=== PATIENT | male | born 1935 | race Caucasian/White ===

== ENCOUNTER → 2016-06-21 | Outpatient (CLI) | payer OTHER ==
[~2016-06-21] MED LIST: ASPI81TA21 PO; CLOP1TAB15 PO; GLIM2TAB2 PO; METF1000 PO; METO50TA7 PO; MULT-225 PO; NITR0.4S UT; PANT40TA PO; RANI150C4 PO; ZCRT/40 PO
[2016-06-21 11:58] LABS: BASO % 1.1 %; COMPLETE YES; EOS % 6.8 %; HEMATOCRIT 37.8 % (42-52); IG% 0.2 %; LYMPH % 30.2 %; LYMPH ABS # 2.72 K/uL (1.2-3.4); MEAN CELL VOLUME 90.4 fL (80-100); MEAN CORPUSCULAR HEMOGLOBIN 30.9 pg (25-34); MEAN CORPUSCULAR HGB CONC 34.1 g/dl (32-36); MEAN PLATELET VOLUME 11.4 fL (7.4-10.4); MONO % 9.3 %; NEUT % 52.4 %; PLATELET COUNT 246 K/uL (130-400); RED BLOOD COUNT 4.18 M/uL (4.7-6.1); WHITE BLOOD COUNT 9.02 K/uL (4.8-10.8)
[2016-06-21 12:27] LABS: ALT/SGPT 20 U/L (12-78); BLOOD UREA NITROGEN 29 mg/dl (7-18); CARBON DIOXIDE 27 mmol/L (21-32); CHLORIDE 106 mmol/L (98-107); CHOLESTEROL 126 mg/dl (0-200); ESTIMATED AVERAGE GLUCOSE 183 mg/dl; GLUCOSE 146 mg/dl (70-99); HA1C FLAG Normal (Normal); POTASSIUM 4.1 mmol/L (3.5-5.1); SODIUM 141 mmol/L (136-145); TRIGLYCERIDES 134 mg/dl (0-150); VERY LOW DENSITY LIPOPROT CALC 27 mg/dl
[2016-06-21 12:30] LABS: ALB/GLOB RATIO 1.1 (0.9-2); ALKALINE PHOSPHATASE 66 U/L (45-117); AST/SGOT 10 U/L (15-37); CHOLESTEROL/HDL RATIO 2.9; HDL CHOLESTEROL 44 mg/dl; LDL CHOLESTEROL CALCULATED 55 mg/dl
== END | disposition home or self-care (01) ==
LOC: C.LABPBG 08:29
PROVIDERS: ATTEND Internal Medicine Cardiovascular Disease
DX: E78.5 Hyperlipidemia, unspecified (principal); E11.9 Type 2 diabetes mellitus without complications

== ENCOUNTER → 2016-10-04 | Outpatient (CLI) | payer OTHER ==
[2016-10-04 12:57] LABS: ESTIMATED AVERAGE GLUCOSE 174 mg/dl; HA1C FLAG Normal (Normal)
== END | disposition home or self-care (01) ==
LOC: C.LABPBG 07:32
PROVIDERS: ATTEND Internal Medicine
DX: E11.9 Type 2 diabetes mellitus without complications (principal)

== ENCOUNTER → 2016-12-11 | Outpatient (CLI) | payer OTHER ==
[2016-12-11 12:19] LABS: CHOLESTEROL/HDL RATIO 3.3
== END | disposition home or self-care (01) ==
LOC: C.LABPBG 08:11
PROVIDERS: ATTEND Internal Medicine Cardiovascular Disease
DX: E78.5 Hyperlipidemia, unspecified (principal)

== ENCOUNTER → 2017-07-01 | Outpatient (CLI) | payer OTHER ==
[~2017-07-01] MED LIST changes: +ASPI-319 PO; -ASPI81TA21 PO; -METO50TA7 PO; +METO50TA8 PO
== END | disposition home or self-care (01) ==
LOC: C.LABPBG 07:46
PROVIDERS: ATTEND Internal Medicine
DX: I25.10 Atherosclerotic heart disease of native coronary artery without angina pectoris (principal)

== ENCOUNTER → 2017-07-26 | Outpatient (CLI) | payer OTHER ==
[2017-07-26 13:37] LABS: BASO % 1.1 %; BASO ABS # 0.08 K/uL (0-0.2); EOS % 7.2 %; EOS ABS # 0.54 K/uL (0-0.5); HEMATOCRIT 35.5 % (42-52); HEMOGLOBIN 12.1 g/dL (14.0-18.0); IG# 0.02 K/uL (0.00-0.02); LYMPH % 29.7 %; LYMPH ABS # 2.24 K/uL (1.2-3.4); MEAN CELL VOLUME 93.4 fL (80-100); MEAN CORPUSCULAR HEMOGLOBIN 31.8 pg (25-34); MEAN CORPUSCULAR HGB CONC 34.1 g/dl (32-36); MEAN PLATELET VOLUME 11.4 fL (7.4-10.4); MONO % 8.5 %; MONO ABS # 0.64 K/uL (0.11-0.59); NEUT % 53.2 %; NEUT ABS # 4.01 K/uL (1.4-6.5); PLATELET COUNT 224 K/uL (130-400); RED CELL DISTRIBUTION WIDTH CV 12.9 % (11.5-14.5); RED CELL DISTRIBUTION WIDTH SD 44.4 fL (36.4-46.3); WHITE BLOOD COUNT 7.53 K/uL (4.8-10.8)
[2017-07-26 14:40] LABS: BLOOD UREA NITROGEN 23 mg/dl (7-18); CALCIUM 8.4 mg/dl (8.5-10.1); CARBON DIOXIDE 25 mmol/L (21-32); GLUCOSE 114 mg/dl (70-99); POTASSIUM 4.1 mmol/L (3.5-5.1); SODIUM 139 mmol/L (136-145)
== END | disposition home or self-care (01) ==
LOC: C.LABPBG 07:59
PROVIDERS: ATTEND Internal Medicine
DX: I12.9 Hypertensive chronic kidney disease with stage 1 through stage 4 chronic kidney disease, or unspecified chronic kidney disease (principal); D63.8 Anemia in other chronic diseases classified elsewhere; I25.10 Atherosclerotic heart disease of native coronary artery without angina pectoris; N18.3 Chronic kidney disease, stage 3 (moderate)

== ENCOUNTER → 2017-07-29 | Outpatient (CLI) | payer OTHER ==
[2017-07-29 13:39] LABS: HEMOGLOBIN A1C 8.1 % (4.5-5.6)
== END | disposition home or self-care (01) ==
LOC: C.LABPBG 10:22
PROVIDERS: ATTEND Internal Medicine
DX: E11.9 Type 2 diabetes mellitus without complications (principal)

== ENCOUNTER 2018-07-29 18:35 | Inpatient (IN) ==
[2018-07-29] MEDS ORDERED: SODIUM CHLORIDE 0.9% 1000ML 1,000 ML IV SCH (19:00)
[2018-07-29 19:09] LABS: Basophils # (auto) 0.07 K/uL (0-0.2); Basophils % (auto) 0.9 %; Eosinophils # (auto) 0.48 K/uL (0-0.5); Eosinophils % (auto) 6.1 %; Hematocrit (blood only) 36.1 % (42-52); Hemoglobin 12.5 g/dL (14.0-18.0); Immature Granulocytes # (auto) 0.02 K/uL (0.00-0.02); Immature Granulocytes % (auto) 0.3 %; Lymphocytes # (auto) 2.14 K/uL (1.2-3.4); Lymphocytes % (auto) 27.2 %; Mean Corpuscular Hgb Conc 34.6 g/dL (32-36); Mean Corpuscular Volume 91.6 fL (80-100); Mean Platelet Volume 10.6 fL (7.4-10.4); Monocytes # (auto) 0.69 K/uL (0.11-0.59); Monocytes % (auto) 8.8 %; Neutrophils # (auto) 4.46 K/uL (1.4-6.5); Neutrophils % (auto) 56.7 %; Platelet Count 248 K/uL (130-400); RDW Coefficient of Variation 12.9 % (11.5-14.5); RDW Standard Deviation 43.1 fL (36.4-46.3); Red Blood Count 3.94 M/uL (4.7-6.1); White Blood Count 7.86 K/uL (4.8-10.8)
--- NOTE | 2018-07-29 19:20 | CT Scan Report ---
CT head/brain wo con CLINICAL HISTORY: 82 years-old Male with Stroke evaluation . Acute strokelike symptoms TECHNIQUE: Multiple axial CT images of the head were obtained without contrast. A dose lowering tech nique was utilized adhering to the principles of ALARA. CT DOSE: 729.78 mGycm COMPARISON: Head CT 09/23/2017 FINDINGS: No acute intracranial hemorrhage, midline shift, intracranial mass, hydrocephalus, territorial ischem ia or abnormal extra-axial collection. Age-related involutional changes with ex vacuo ventriculomegal y. Cerebral vascular calcifications are noted. The calvarium is intact. Prior bilateral cataract repair. The paranasal sinuses, mastoid air cells, a nd middle ear cavities are clear. IMPRESSION: No acute intracranial abnormality. The above report was generated using voice recognition software. It may contain grammatical, syntax o r spelling errors. Electronically signed by: Kartik Hidalgo M.D. 07/29/2018 7:19 PM
[2018-07-29 19:24] LABS: Partial Thromboplastin Time 26.7 Seconds (21.0-31.0); Prothrombin Time 9.9 Seconds (9.0-12.0)
[2018-07-29] MEDS ORDERED: ASPIRIN CHEW 324 MG PO STA (19:26)
[2018-07-29 19:28] LABS: Alanine Aminotransferase 23 U/L (12-78); Albumin Level 3.5 gm/dl (3.4-5.0); Aspartate Aminotransferase 20 U/L (15-37); BUN Creatinine Ratio 17.2 (10-20); Blood Urea Nitrogen 27 mg/dl (7-18); Calcium 8.7 mg/dl (8.5-10.1); Carbon Dioxide 22 mmol/L (21-32); Chloride 105 mmol/L (98-107); Creatinine Clr Calc Pharmacy 38.1 ml/min; Est GFR (African American) 46.2; Est GFR (Non-African American) 39.8; Glucose 192 mg/dl (70-99); Potassium 4.4 mmol/L (3.5-5.1); Sodium 137 mmol/L (136-145)
[2018-07-29 19:33] LABS: Albumin Globulin Ratio 0.9 (0.9-2); Alkaline Phosphatase 71 U/L (45-117); Bilirubin,Total 0.2 mg/dl (0.2-1); Globulin 3.8 gm/dl (2.5-4.0); Total Protein 7.3 gm/dl (6.4-8.2); Troponin I < 0.015 ng/ml (0-0.045)
--- NOTE | 2018-07-29 20:04 | XRay Report ---
XR chest 1V portable CLINICAL HISTORY: Cerebrovascular accident. COMPARISON STUDY: Chest radiograph September 23, 2017. FINDINGS: Chronic right-sided rib deformities are noted. There is no pneumothorax or pleural effusion . There is no consolidation. Mild cardiomegaly is noted. There is no evidence for pulmonary edema. IMPRESSION: No acute cardiopulmonary findings. Electronically signed by: Cristian Ramirez M.D. 07/29/2018 8:03 PM
[2018-07-29] MEDS ORDERED: ACETAMINOPHEN 325 MG TAB PO PRN (22:33)
[2018-07-29] MEDS ORDERED: PHARMACIST DISCHARGE MED REC CONSULT PRN (22:33)
[2018-07-29] MEDS ORDERED: CARBOHYDRATES FOR HYPOGLYCEMIA PO PRN (22:33)
[2018-07-29] MEDS ORDERED: GLUCAGON FOR INJ 1 MG VIAL SQ PRN (22:33)
[2018-07-29] MEDS ORDERED: GLUCOSE 10 TABS/TUBE PO PRN (22:33)
[2018-07-29] MEDS ORDERED: ONDANSETRON INJ 2 MG/ML 2 ML VIAL IV PRN (22:33)
[2018-07-29] MEDS ORDERED: GLUCOSE 40% GEL 15 GM TUBE PO PRN (22:33)
[2018-07-29] MEDS ORDERED: DEXTROSE 50% 50 ML SYRINGE IV PRN (22:33)
[2018-07-29] MEDS: INSULIN GLARGINE SOLOSTAR 100 UNITS/ML 3 ML PEN SC SCH (23:51)
[2018-07-29] MEDS: INSULIN ASPART 100 UNITS/ML 3 ML PEN SC SCH (23:52)
--- NOTE | 2018-07-30 00:24 | Emergency Department Note ---
Entered by Floridalma May acting as a scribe for ED Provider Note CHIEF COMPLAINT: Stroke-like symptoms HISTORY OF PRESENT ILLNESS: The patient is an 82 year old male with a history of coronary artery disease and a cardiac catheterization who presents to the Emergency Room with complaints of worsening stroke-like symptoms starting around 1730 today. The patient reports that he went to sit on the porch after dinner and was speaking to his when his speech became gargled. He states that his speech is now back to normal and his agrees, but he complains of pressure in his head and feeling lightheaded. Per , the patient was stumbling when he walked to the porch. She notes that he has been evaluated for muscle weakness since last November, but today's stumbling was worse than usual. She denies noticing any speech symp toms earlier today. The reports that they were just in [place], so she suspects that the patient may be dehydrated. She adds that the patient is on Plavix and that his PCP is Dr. Kulwinder Jaramillo. Pt denies LOC, fevers, chills, diaphoresis, visual changes, neck pain, chest pain, breathing difficulties, nausea, vomiting, abdominal pain, back pain, melena, hematochezia, urinary symptoms, numbness, lymphadenopathy, rash, or other complaints. REVIEW OF SYSTEMS: See HPI for pertinent positives and negatives. A total of ten systems were reviewed and were otherwise negative. PMHx/PSHx: Coronary artery disease, cardiac catheterization SOCIAL HISTORY: Patient lives at home. He is and retired. He has never been a smoker. PHYSICAL EXAM: GENERAL: Awake, alert, well-appearing, in no distress HEAD: Normocephalic, atraumatic. No foy sign. No raccoon eyes. EYES: Normal conjunctiva. PERRL. EARS: External ears normal. Right TM normal. Left TM normal. NOSE: Atraumatic OROPHARYNX: Lips, tongue, and mucosa unremarkable. No erythema or exudate. NECK: No tracheal deviation or JVD. No posterior midline tenderness. No step offs noted. RESPIRATORY: CTA bilaterally. Breath sounds equal. No wheezes. No rhonchi. Normal respiratory effort. CARDIAC: Normal rate, normal rhythm. No murmurs. No rubs. ABDOMEN: Inspection reveals no abnormalities. Soft, non distended. No tenderness to palpation. No hernias. BACK: No midline step offs or tenderness to palpation. Unremarkable. PELVIS: Stable to rock. SKIN: Normal. LYMPH: No adenopathy. MUSCULOSKELETAL: Upper and lower extremities are atraumatic. NEURO: GCS 15. Normal sensorium. Normal heel to purvis. Normal alternating movements. EMERGENCY DEPARTMENT COURSE: 1848: Past medical records reviewed. The patient was evaluated in room A10, and a complete history and physical examination were performed. 1857: I reviewed the patient's case with Sirisha Jamison. 1916: I checked on the patient and updated him on his results. He is stable and undergoing telestroke evaluation. 1918: I reviewed the patient's case with Dr. Granda - Radiology. Dr. Granda reported that the patient's head CT is negative. 1924: I reviewed the patient's case again with Sirisha Jamison. recommended no TPA. She advised the patient be admitted for a stroke workup and be administered aspirin. 1927: I reviewed the patient's case with . will evaluate the patient for further management. 1930: On reevaluation, the patient is resting. I discussed his results and plan for admission with him. He verbalized agreement of the treatment plan. MEDICAL DECISION MAKING: Prior records/ancillary studies reviewed and summarized above. Nursing notes reviewed and agree them. Additional history obtained from the patient's . The patient's history was concerning for expressive aphasia Differential diagnosis: Etiologies such as CVA, TIA metabolic, infection, hypo/hyperglycemia, electrolyte abnormalities, cardiac sources, intracerebral event, toxicologic, neurologic, as well as others were entertained. Physical examination: As above. ER treatment provided: IV Lock Normal saline hydration Oral aspirin On reassessment the patient felt better. Diagnostics interpretation by me: ECG: No dysrhythmia or ischemia The labs revealed an unremarkable CBC except for mild anemia. Mild hyperglycemia on chemistry panel. Imaging studies: CT of the head and chest x-ray were negative for any acute disease. Consultation: A consultation was placed with [facility]. The patient was a stroke alert. He had a very low NIH score. His expressive aphasia had resolved. He had some slight facial droop. The patient continued to improve. After he was evaluated by Dr. Rodriguez of [facility] tele-stroke it was recommended that the patient be admitted to the hospital for a full stroke work-up A consultation was placed with the hospitalist. The case was discussed and diagnostics were reviewed. The patient was evaluated in the ER for further treatment. IMPRESSION: Stroke-like symptoms, expressive aphasia PLAN: Admitted as inpatient The scribe's documentation has been prepared under my direction and personally reviewed by me in its entirety. I confirm that the note above accurately reflects all work, treatment, procedures, and medical decision making performed by me. Impression & Plan Stroke-like symptoms, Expressive aphasia Past Med/Surg History Medical History Coronary artery disease Surgical History S/P cardiac catheterization Social History Preferred Language: Faroese Communication Ability: Effective Portfolio Architect Required: No Beliefs That Will Affect Care: None marital status: Current Living Situation: Spouse current occupational status: retired Other Information That Helps Us Care for You: No Feels Safe at Home: Yes Safety Concerns: Feels Safe At This Time Smoking Status: Former smoker Tobacco Type: cigarettes Smoking End Date: 1992 Second Hand Exposure: Yes Tobacco Cessation Education Requested by Patient: No Hx Alcohol Use: No Hx Substance Use: No Results & Data Vital Signs Vital Signs - 24 hr 07/29/18 18:42 07/29/18 19:10 07/29/18 19:16 Temperature 36.7 C Temperature Source Oral Sepsis Recent Fever Within 48 Hours No Sepsis Action Taken by Nursing No Action Required Pulse Rate 64 74 73 Pulse Rate [Left Apical] Pulse Rate from SpO2 Sensor 74 73 Pulse Rhythm [Left Apical] Pulse Strength [Left Apical] Respiratory Rate 20 22 23 Respiratory Effort / Characteristics Non-Labored Spontaneous Respiratory Depth Normal Respiratory Pattern Regular Blood Pressure 150/71 H 175/97 H Blood Pressure [Left Arm] Blood Pressure Mean 97 123 Blood Pressure Mean [Left Arm] Blood Pressure Position Sitting Blood Pressure Position [Left Arm] Pulse Oximetry 97 98 98 Oxygen Delivery Method Room Air 07/29/18 19:20 07/29/18 19:30 07/29/18 19:31 Temperature Temperature Source Sepsis Recent Fever Within 48 Hours Sepsis Action Taken by Nursing Pulse Rate 72 70 70 Pulse Rate [Left Apical] Pulse Rate from SpO2 Sensor 70 70 Pulse Rhythm [Left Apical] Pulse Strength [Left Apical] Respiratory Rate 23 21 18 Respiratory Effort / Characteristics Respiratory Depth Respiratory Pattern Blood Pressure 159/70 H Blood Pressure [Left Arm] Blood Pressure Mean 99 Blood Pressure Mean [Left Arm] Blood Pressure Position Blood Pressure Position [Left Arm] Pulse Oximetry 98 98 Oxygen Delivery Method 07/29/18 19:40 07/29/18 19:50 07/29/18 20:00 Temperature Temperature Source Sepsis Recent Fever Within 48 Hours Sepsis Action Taken by Nursing Pulse Rate 72 65 67 Pulse Rate [Left Apical] Pulse Rate from SpO2 Sensor 71 66 67 Pulse Rhythm [Left Apical] Pulse Strength [Left Apical] Respiratory Rate 18 21 16 Respiratory Effort / Characteristics Respiratory Depth Respiratory Pattern Blood Pressure Blood Pressure [Left Arm] Blood Pressure Mean Blood Pressure Mean [Left Arm] Blood Pressure Position Blood Pressure Position [Left Arm] Pulse Oximetry 97 96 97 Oxygen Delivery Method 07/29/18 20:01 07/29/18 20:10 07/29/18 20:20 Temperature Temperature Source Sepsis Recent Fever Within 48 Hours Sepsis Action Taken by Nursing Pulse Rate 66 66 67 Pulse Rate [Left Apical] Pulse Rate from SpO2 Sensor 66 66 67 Pulse Rhythm [Left Apical] Pulse Strength [Left Apical] Respiratory Rate 16 18 15 Respiratory Effort / Characteristics Respiratory Depth Respiratory Pattern Blood Pressure 148/75 H Blood Pressure [Left Arm] Blood Pressure Mean 99 Blood Pressure Mean [Left Arm] Blood Pressure Position Blood Pressure Position [Left Arm] Pulse Oximetry 98 99 97 Oxygen Delivery Method 07/29/18 20:30 07/29/18 20:31 07/29/18 20:40 Temperature Temperature Source Sepsis Recent Fever Within 48 Hours Sepsis Action Taken by Nursing Pulse Rate 65 66 66 Pulse Rate [Left Apical] Pulse Rate from SpO2 Sensor 66 66 67 Pulse Rhythm [Left Apical] Pulse Strength [Left Apical] Respiratory Rate 19 15 11 L Respiratory Effort / Characteristics Respiratory Depth Respiratory Pattern Blood Pressure 147/69 H Blood Pressure [Left Arm] Blood Pressure Mean 95 Blood Pressure Mean [Left Arm] Blood Pressure Position Blood Pressure Position [Left Arm] Pulse Oximetry 97 98 98 Oxygen Delivery Method 07/29/18 20:50 07/29/18 21:13 07/29/18 21:20 Temperature Temperature Source Sepsis Recent Fever Within 48 Hours Sepsis Action Taken by Nursing Pulse Rate 67 68 67 Pulse Rate [Left Apical] Pulse Rate from SpO2 Sensor 66 69 67 Pulse Rhythm [Left Apical] Pulse Strength [Left Apical] Respiratory Rate 15 15 21 Respiratory Effort / Characteristics Respiratory Depth Respiratory Pattern Blood Pressure Blood Pressure [Left Arm] Blood Pressure Mean Blood Pressure Mean [Left Arm] Blood Pressure Position Blood Pressure Position [Left Arm] Pulse Oximetry 99 97 98 Oxygen Delivery Method 07/29/18 21:30 07/29/18 21:31 07/29/18 21:40 Temperature Temperature Source Sepsis Recent Fever Within 48 Hours Sepsis Action Taken by Nursing Pulse Rate 65 66 69 Pulse Rate [Left Apical] Pulse Rate from SpO2 Sensor 66 67 Pulse Rhythm [Left Apical] Pulse Strength [Left Apical] Respiratory Rate 19 17 13 Respiratory Effort / Characteristics Respiratory Depth Respiratory Pattern Blood Pressure 174/81 H Blood Pressure [Left Arm] Blood Pressure Mean 112 Blood Pressure Mean [Left Arm] Blood Pressure Position Blood Pressure Position [Left Arm] Pulse Oximetry 98 97 Oxygen Delivery Method 07/29/18 21:50 07/29/18 22:00 07/29/18 22:01 Temperature Temperature Source Sepsis Recent Fever Within 48 Hours Sepsis Action Taken by Nursing Pulse Rate 65 63 63 Pulse Rate [Left Apical] Pulse Rate from SpO2 Sensor Pulse Rhythm [Left Apical] Pulse Strength [Left Apical] Respiratory Rate 15 16 16 Respiratory Effort / Characteristics Respiratory Depth Respiratory Pattern Blood Pressure 147/72 H Blood Pressure [Left Arm] Blood Pressure Mean 97 Blood Pressure Mean [Left Arm] Blood Pressure Position Blood Pressure Position [Left Arm] Pulse Oximetry Oxygen Delivery Method 07/29/18 22:10 07/29/18 22:20 07/29/18 22:42 Temperature 36.4 C L Temperature Source Oral Sepsis Recent Fever Within 48 Hours Sepsis Action Taken by Nursing Pulse Rate 63 62 Pulse Rate [Left Apical] 72 Pulse Rate from SpO2 Sensor Pulse Rhythm [Left Apical] Regular Pulse Strength [Left Apical] Normal Respiratory Rate 15 16 18 Respiratory Effort / Characteristics Non-Labored Spontaneous Respiratory Depth Normal Respiratory Pattern Regular Blood Pressure Blood Pressure [Left Arm] 165/73 H Blood Pressure Mean Blood Pressure Mean [Left Arm] 103 Blood Pressure Position Blood Pressure Position [Left Arm] Lying Pulse Oximetry 95 98 Oxygen Delivery Method Room Air Home Medications Current Medication List: was personally reviewed by me Laboratory Data Attestation: I reviewed the patient's lab results. Result diagrams: 07/29/18 18:58 07/29/18 18:58 Lab Results 07/29/18 07/29/18 07/29/18 Range/Units 18:50 18:58 18:58 WBC 7.86 (4.8-10.8) K/uL RBC 3.94 L (4.7-6.1) M/uL Hgb 12.5 L (14.0-18.0) g/dL Hct 36.1 L (42-52) % MCV 91.6 (80-100) fL MCH 31.7 (25-34) pg MCHC 34.6 (32-36) g/dL RDW Std Deviation 43.1 (36.4-46.3) fL RDW Coeff of Praveena 12.9 (11.5-14.5) % Plt Count 248 (130-400) K/uL MPV 10.6 H (7.4-10.4) fL Immature Gran % (Auto) 0.3 % Neut % (Auto) 56.7 % Lymph % (Auto) 27.2 % [place] % (Auto) 8.8 % Eos % (Auto) 6.1 % Baso % (Auto) 0.9 % Immature Gran # (Auto) 0.02 (0.00-0.02) K/uL Neut # (Auto) 4.46 (1.4-6.5) K/uL Lymph # (Auto) 2.14 (1.2-3.4) K/uL [place] # (Auto) 0.69 H (0.11-0.59) K/uL Eos # (Auto) 0.48 (0-0.5) K/uL Baso # (Auto) 0.07 (0-0.2) K/uL PT 9.9 (9.0-12.0) Seconds INR 1.0 (0.9-1.1) APTT 26.7 (21.0-31.0) Seconds PTT Ratio 1.0 Sodium (136-145) mmol/L Potassium (3.5-5.1) mmol/L Chloride (98-107) mmol/L Carbon Dioxide (21-32) mmol/L Anion Gap (3-11) BUN (7-18) mg/dl Creatinine (0.6-1.4) mg/dl Est Cr Clr Drug Dosing ml/min Est GFR ( Amer) Est GFR (Non-Af Amer) BUN/Creatinine Ratio (10-20) Glucose (70-99) mg/dl POC Glucose 215 H (70-99) Calcium (8.5-10.1) mg/dl Magnesium (1.8-2.4) mg/dl Total Bilirubin (0.2-1) mg/dl AST (15-37) U/L ALT (12-78) U/L Alkaline Phosphatase (45-117) U/L Troponin I (0-0.045) ng/ml Total Protein (6.4-8.2) gm/dl Albumin (3.4-5.0) gm/dl Globulin (2.5-4.0) gm/dl Albumin/Globulin Ratio (0.9-2) Blood Type Antibody Screen 07/29/18 07/29/18 07/29/18 Range/Units 18:58 18:58 23:38 WBC (4.8-10.8) K/uL RBC (4.7-6.1) M/uL Hgb (14.0-18.0) g/dL Hct (42-52) % MCV (80-100) fL MCH (25-34) pg MCHC (32-36) g/dL RDW Std Deviation (36.4-46.3) fL RDW Coeff of Praveena (11.5-14.5) % Plt Count (130-400) K/uL MPV (7.4-10.4) fL Immature Gran % (Auto) % Neut % (Auto) % Lymph % (Auto) % [place] % (Auto) % Eos % (Auto) % Baso % (Auto) % Immature Gran # (Auto) (0.00-0.02) K/uL Neut # (Auto) (1.4-6.5) K/uL Lymph # (Auto) (1.2-3.4) K/uL [place] # (Auto) (0.11-0.59) K/uL Eos # (Auto) (0-0.5) K/uL Baso # (Auto) (0-0.2) K/uL PT (9.0-12.0) Seconds INR (0.9-1.1) APTT (21.0-31.0) Seconds PTT Ratio Sodium 137 (136-145) mmol/L Potassium 4.4 (3.5-5.1) mmol/L Chloride 105 (98-107) mmol/L Carbon Dioxide 22 (21-32) mmol/L Anion Gap 11.0 (3-11) BUN 27 H (7-18) mg/dl Creatinine 1.59 H (0.6-1.4) mg/dl Est Cr Clr Drug Dosing 38.1 ml/min Est GFR ( Amer) 46.2 Est GFR (Non-Af Amer) 39.8 BUN/Creatinine Ratio 17.2 (10-20) Glucose 192 H (70-99) mg/dl POC Glucose 149 H (70-99) Calcium 8.7 (8.5-10.1) mg/dl Magnesium 2.0 (1.8-2.4) mg/dl Total Bilirubin 0.2 (0.2-1) mg/dl AST 20 (15-37) U/L ALT 23 (12-78) U/L Alkaline Phosphatase 71 (45-117) U/L Troponin I < 0.015 (0-0.045) ng/ml Total Protein 7.3 (6.4-8.2) gm/dl Albumin 3.5 (3.4-5.0) gm/dl Globulin 3.8 (2.5-4.0) gm/dl Albumin/Globulin Ratio 0.9 (0.9-2) Blood Type A Positive Antibody Screen NEGATIVE Administered Medications Insulin Aspart (Novolog Flexpen) 0 units SC ACHS ABDIAS Stop: 08/28/18 22:59 Last Admin: 07/29/18 23:52 Dose: Not Given Documented by: [id number] Cosigned by: [id number] Insulin Glargine (Lantus Solostar Pen) 7 units SC BID ABDIAS Stop: 08/28/18 22:59 Last Admin: 07/29/18 23:51 Dose: 7 units Documented by: [id number] Cosigned by: [id number] Discontinued Medications Aspirin (Aspirin) 324 mg PO NOW STA Stop: 07/29/18 19:27 Last Admin: 07/29/18 19:51 Dose: 324 mg Documented by: [id number] Sodium Chloride (Nss 1000ml) 1,000 mls @ 50 mls/hr IV .Q20H ABDIAS Stop: 08/28/18 18:59 Last Admin: 07/29/18 19:17 Dose: 50 mls/hr Documented by: [id number] Imaging Data Radiologist's Impression: Radiology results as stated below per my review and the radiologist's interpretation: CT head/brain wo con CLINICAL HISTORY: 82 years-old Male with Stroke evaluation . Acute strokelike symptoms TECHNIQUE: Multiple axial CT images of the head were obtained without contrast. A dose lowering technique was utilized adhering to the principles of ALARA. CT DOSE: 729.78 mGycm COMPARISON: Head CT 09/23/2017 FINDINGS: No acute intracranial hemorrhage, midline shift, intracranial mass, hydrocephalus, territorial ischemia or abnormal extra-axial collection. Age- related involutional changes with ex vacuo ventriculomegaly. Cerebral vascular calcifications are noted. The calvarium is intact. Prior bilateral cataract repair. The paranasal sinuses, mastoid air cells, and middle ear cavities are clear. IMPRESSION: No acute intracranial abnormality. The above report was generated using voice recognition software. It may contain grammatical, syntax or spelling errors. Electronically signed by: Kartik Hidalgo M.D. 07/29/2018 7:19 PM XR chest 1V portable CLINICAL HISTORY: Cerebrovascular accident. COMPARISON STUDY: Chest radiograph September 23, 2017. FINDINGS: Chronic right-sided rib deformities are noted. There is no pneumothorax or pleural effusion. There is no consolidation. Mild cardiomegaly is noted. There is no evidence for pulmonary edema. IMPRESSION: No acute cardiopulmonary findings. Electronically signed by: Cristian Ramirez M.D. 07/29/2018 8:03 PM ECG Data Attestation: I personally reviewed and interpreted this ECG as follows: Indication: other (stroke-like symptoms) Rate (beats per minute): 72 Rhythm: normal sinus Findings: no PAC, no PVC, no ST depression and no ST elevation Blood Pressure Blood Pressure Findings: Elevated blood pressure Blood Pressure Disposition: further management by hospitalist Discharge Plan Visit Data *Final* Discharge Date/Time: 07/29/18 22:23 Chief Complaint: Stroke/CVA Symptoms Stated Complaint: GARBLED SPEECH, LOSS OF BALANCE ED Provider: Shai An Discharge Problem: Stroke-like symptoms, Expressive aphasia Patient Disposition: Admitted As Inpatient Discharge Instructions Interventions: ED Discharge Assessment Last Done: 07/29/18 22:23 The scribe's documentation has been prepared under my direction and personally reviewed by me in its entirety. I confirm that the note above accurately reflects all work, treatment, procedures, and medical decision making performed by me.
--- NOTE | 2018-07-30 02:15 | History & Physical Report ---
Date of Service July 29, 2018 Assessment & Plan (1) Aphasia: Patient with episode of aphasia lasting approximately 20 minutes earlier today. Has since resolved to baseline functional status. 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 Concern for TIA/CVA resulting in Wernicke's pattern of aphasia -Admit to PCU, neuro checks per protocol -Check MRI brain, MRA head and neck -Check echocardiogram -Check A1C -Lipid panel in March with LDL=74, HDL=38, normal LFTs -Will increase Atorvastatin to 40mg po qHS. Concern that this may worsen patient's myopathy - he will need to be closely monitored in the outpatient setting. Continue CoQ10 -He is presently on ASA and Plavix since 2003 for history of cardiac stents. Will continue this for now, discuss with Neurology about possibly changing to Aggrenox or other anti-platelet agents -Neurology consultation - appreciate assistance with this case -PT/OT Present on Admission?: Yes (2) Hypertension: Blood pressure mildly elevated. -Hold Metoprolol for now to allow for permissive hypertension -Continue to monitor Present on Admission?: Yes (3) Diabetes: Blood [id number]. -Check A1C -Hold oral agents -Lantus 7u BID -ISS -CC diet as tolerated which dysphagia screen passed Present on Admission?: Yes (4) Coronary artery disease: Patient with history of CAD s/p stent to mid LAD in April 2003 and EN to distal LAD in March 2018. On DAPT with ASA and Plavix since 2003. On Atorvastatin 10mg daily. He follows with Dr. Ortiz and was last seen on 17 July 2018. He has been stable from a CAD standpoint. -Continue ASA and Plavix -Increase Atorvastatin as above -Holding Metoprolol as above -Continue to monitor Present on Admission?: Yes (5) Hypothyroid: Chronic -Continue Synthroid (6) GERD (gastroesophageal reflux disease): Chronic. Stable -Continue Protonix -Continue Ranitidine Present on Admission?: Yes (7) CKD (chronic kidney disease): Near baseline -Continue to monitor BUN, Cr and electroltyes -Avoid nephrotoxic agents Present on Admission?: Yes (8) Dyslipidemia: Lipid results as above -Increase Atorvastatin Present on Admission?: Yes (9) BPH (benign prostatic hyperplasia): Patient with BPH. Reports increased urinary frequency and nocturia. No dysuria -Check UA and culture -Bladder scan as needed -Consider initiating Flomax F/E/N - Heplock. MOnitor electrolytes and replete as needed Ppx - SCDs, Protonix and Ranitidine as above Code -Full per discussion with patient Dispo - Admit to PCU for CVA workup History of Present Illness Chief Complaint: aphasia Primary Care Provider: Kulwinder Jaramillo MD Mr. 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 He reports that he ate his supper and went to sit on the porch. He was trying to talk with his and states he was speaking with nonsensical words and syllables. He knew what he wanted to say but was unable to speak appropriate words. Symptoms lasted approximately 20 minutes then resolved. He denies numbness/weakness/visual changes or facial droop. He had a mild headache following the event. Presently feels normal. states he is back to his baseline status. 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 EMG was performed which suggested a mild myopathy. He was treated with steroids with minimal improvement. Follows with Dr. Cartagena - last seen on 10 July. He was referred to the neuromuscular clinic at [place] for possible muscle biopsy. states that he has a shuffling gait and his balance was worse than usual today. They travelled to [place] over the weekend. ER Course: ASA 324mg, NSS Allergies Allergy/AdvReac Type Severity Reaction Status Date / Time Iodinated Contrast- Oral and Allergy Severe ANAPYLAXIS Verified 07/29/18 19:11 IV Dye shellfish derived Allergy Severe Anaphylaxis Verified 07/29/18 19:11 Home Medications Home Medications Medication Instructions Recorded Confirmed Type aspirin [Aspir-81] 81 mg PO DAILY 07/29/18 07/29/18 History atorvastatin 10 mg PO HS 07/29/18 07/29/18 History cetirizine [Zyrtec] 10 mg PO DAILY 07/29/18 07/29/18 History clopidogrel [Plavix] 75 mg PO QAM 07/29/18 07/29/18 History coQ10 (ubiquinol) 200 mg PO DAILY 07/29/18 07/29/18 History epinephrine [EpiPen] 0.3 mg IM DIRECTED PRN 07/29/18 07/29/18 History glimepiride 2 mg PO QAM 07/29/18 07/29/18 History levothyroxine 25 mcg PO QPM 07/29/18 07/29/18 History metformin 1,000 mg PO BIDM 07/29/18 07/29/18 History metoprolol succinate 75 mg PO QAM 07/29/18 07/29/18 History multivitamin 1 tab PO QAM 07/29/18 07/29/18 History nitroglycerin [Nitrostat] 0.4 mg SUBLINGUAL DIRECTED PRN 07/29/18 07/29/18 History pantoprazole 40 mg PO QPM 07/29/18 07/29/18 History ranitidine HCl 150 mg PO HS 07/29/18 07/29/18 History Past Med/Surg History Medical History Coronary artery disease BPH (benign prostatic hyperplasia) CKD (chronic kidney disease) Diabetes Dyslipidemia GERD (gastroesophageal reflux disease) Hypertension Hypothyroid Surgical History S/P cardiac catheterization Family History Other Family history non-contributory Social History Preferred Language: Tanzanian Communication Ability: Effective Motorcycle Maker Required: No Beliefs That Will Affect Care: None marital status: Current Living Situation: Spouse current occupational status: retired Other Information That Helps Us Care for You: No Feels Safe at Home: Yes Safety Concerns: Feels Safe At This Time Smoking Status: Former smoker Tobacco Type: cigarettes Smoking End Date: 1992 Second Hand Exposure: Yes Tobacco Cessation Education Requested by Patient: No Hx Alcohol Use: No Hx Substance Use: No Review of Systems Review of Systems: All systems reviewed & are unremarkable except as noted in HPI & below Patient reports urinary urgency as well as nocturia Patient reports occasional falls Physical Exam Physical Exam: General: patient resting comfortably, NAD, non-toxic in appearance, AA&O x 4 Skin: warm, dry, intact, no rashes or lesions HEENT: NC/AT, PERRL, EOMI, anicteric sclera, conjunctiva without injection, external ear normal to inspection and nontender, nares patent, moist mucus membranes, dentition intact, no oropharyngeal lesions, neck supple, trachea midline, no LAD, no thyromegaly, no JVD Heart: +S1/S2, regular, no m/r/g Lungs: equal air entry bilaterally, no rales/rhonchi/wheezes Abd: +BS, soft, NT/ND, no masses/organomegaly/ascites Ext: warm, 2+ pulses in UE/LE bilaterally, no clubbing/cyanosis or edema Neuro: AA&O x 4, speech intact and appropirate, no facial droop, CN II-XII grossly intact, slightly decreased hearing on L. Sensation to light touch intact bilaterally, weak hand cello teacher bilaterally, L weaker than R (reported as baseline by patient) strength 4/5, no dysmetria Results & Data Vital Signs (Past 12 Hours) Vital Signs Temp Pulse Pulse Resp BP BP Pulse Ox 07/29/18 22:42 36.4 C L 72 18 165/73 H 98 07/29/18 22:20 62 16 95 07/29/18 22:10 63 15 07/29/18 22:01 63 16 147/72 H 07/29/18 22:00 63 16 07/29/18 21:50 65 15 07/29/18 21:40 69 13 07/29/18 21:31 66 17 174/81 H 97 07/29/18 21:30 65 19 98 07/29/18 21:20 67 21 98 07/29/18 21:13 68 15 97 07/29/18 20:50 67 15 99 07/29/18 20:40 66 11 L 98 07/29/18 20:31 66 15 147/69 H 98 07/29/18 20:30 65 19 97 07/29/18 20:20 67 15 97 07/29/18 20:10 66 18 99 07/29/18 20:01 66 16 148/75 H 98 07/29/18 20:00 67 16 97 07/29/18 19:50 65 21 96 07/29/18 19:40 72 18 97 07/29/18 19:31 70 18 159/70 H 98 07/29/18 19:30 70 21 98 07/29/18 19:20 72 23 07/29/18 19:16 73 23 98 07/29/18 19:10 74 22 175/97 H 98 07/29/18 18:42 36.7 C 64 20 150/71 H 97 Laboratory Results Lab Results 07/29/18 07/29/18 07/29/18 Range/Units 18:50 18:58 18:58 WBC 7.86 (4.8-10.8) K/uL RBC 3.94 L (4.7-6.1) M/uL Hgb 12.5 L (14.0-18.0) g/dL Hct 36.1 L (42-52) % MCV 91.6 (80-100) fL MCH 31.7 (25-34) pg MCHC 34.6 (32-36) g/dL RDW Std Deviation 43.1 (36.4-46.3) fL RDW Coeff of Praveena 12.9 (11.5-14.5) % Plt Count 248 (130-400) K/uL MPV 10.6 H (7.4-10.4) fL Immature Gran % (Auto) 0.3 % Neut % (Auto) 56.7 % Lymph % (Auto) 27.2 % [place] % (Auto) 8.8 % Eos % (Auto) 6.1 % Baso % (Auto) 0.9 % Immature Gran # (Auto) 0.02 (0.00-0.02) K/uL Neut # (Auto) 4.46 (1.4-6.5) K/uL Lymph # (Auto) 2.14 (1.2-3.4) K/uL [place] # (Auto) 0.69 H (0.11-0.59) K/uL Eos # (Auto) 0.48 (0-0.5) K/uL Baso # (Auto) 0.07 (0-0.2) K/uL PT 9.9 (9.0-12.0) Seconds INR 1.0 (0.9-1.1) APTT 26.7 (21.0-31.0) Seconds PTT Ratio 1.0 Sodium (136-145) mmol/L Potassium (3.5-5.1) mmol/L Chloride (98-107) mmol/L Carbon Dioxide (21-32) mmol/L Anion Gap (3-11) BUN (7-18) mg/dl Creatinine (0.6-1.4) mg/dl Est Cr Clr Drug Dosing ml/min Est GFR ( Amer) Est GFR (Non-Af Amer) BUN/Creatinine Ratio (10-20) Glucose (70-99) mg/dl POC Glucose 215 H (70-99) Calcium (8.5-10.1) mg/dl Magnesium (1.8-2.4) mg/dl Total Bilirubin (0.2-1) mg/dl AST (15-37) U/L ALT (12-78) U/L Alkaline Phosphatase (45-117) U/L Troponin I (0-0.045) ng/ml Total Protein (6.4-8.2) gm/dl Albumin (3.4-5.0) gm/dl Globulin (2.5-4.0) gm/dl Albumin/Globulin Ratio (0.9-2) Blood Type Antibody Screen 07/29/18 07/29/18 07/29/18 Range/Units 18:58 18:58 23:38 WBC (4.8-10.8) K/uL RBC (4.7-6.1) M/uL Hgb (14.0-18.0) g/dL Hct (42-52) % MCV (80-100) fL MCH (25-34) pg MCHC (32-36) g/dL RDW Std Deviation (36.4-46.3) fL RDW Coeff of Praveena (11.5-14.5) % Plt Count (130-400) K/uL MPV (7.4-10.4) fL Immature Gran % (Auto) % Neut % (Auto) % Lymph % (Auto) % [place] % (Auto) % Eos % (Auto) % Baso % (Auto) % Immature Gran # (Auto) (0.00-0.02) K/uL Neut # (Auto) (1.4-6.5) K/uL Lymph # (Auto) (1.2-3.4) K/uL [place] # (Auto) (0.11-0.59) K/uL Eos # (Auto) (0-0.5) K/uL Baso # (Auto) (0-0.2) K/uL PT (9.0-12.0) Seconds INR (0.9-1.1) APTT (21.0-31.0) Seconds PTT Ratio Sodium 137 (136-145) mmol/L Potassium 4.4 (3.5-5.1) mmol/L Chloride 105 (98-107) mmol/L Carbon Dioxide 22 (21-32) mmol/L Anion Gap 11.0 (3-11) BUN 27 H (7-18) mg/dl Creatinine 1.59 H (0.6-1.4) mg/dl Est Cr Clr Drug Dosing 38.1 ml/min Est GFR ( Amer) 46.2 Est GFR (Non-Af Amer) 39.8 BUN/Creatinine Ratio 17.2 (10-20) Glucose 192 H (70-99) mg/dl POC Glucose 149 H (70-99) Calcium 8.7 (8.5-10.1) mg/dl Magnesium 2.0 (1.8-2.4) mg/dl Total Bilirubin 0.2 (0.2-1) mg/dl AST 20 (15-37) U/L ALT 23 (12-78) U/L Alkaline Phosphatase 71 (45-117) U/L Troponin I < 0.015 (0-0.045) ng/ml Total Protein 7.3 (6.4-8.2) gm/dl Albumin 3.5 (3.4-5.0) gm/dl Globulin 3.8 (2.5-4.0) gm/dl Albumin/Globulin Ratio 0.9 (0.9-2) Blood Type A Positive Antibody Screen NEGATIVE Diagnostic Findings CT head/brain wo con CLINICAL HISTORY: 82 years-old Male with Stroke evaluation . Acute strokelike symptoms TECHNIQUE: Multiple axial CT images of the head were obtained without contrast. A dose lowering technique was utilized adhering to the principles of ALARA. CT DOSE: 729.78 mGycm COMPARISON: Head CT 09/23/2017 FINDINGS: No acute intracranial hemorrhage, midline shift, intracranial mass, hydrocephalus, territorial ischemia or abnormal extra-axial collection. Age- related involutional changes with ex vacuo ventriculomegaly. Cerebral vascular calcifications are noted. The calvarium is intact. Prior bilateral cataract repair. The paranasal sinuses, mastoid air cells, and middle ear cavities are clear. IMPRESSION: No acute intracranial abnormality. The above report was generated using voice recognition software. It may contain grammatical, syntax or spelling errors. Electronically signed by: Kartik Hidalgo M.D. 07/29/2018 7:19 PM Dictated: 07/29/181909 Transcribed: 07/29/181909 XR chest 1V portable CLINICAL HISTORY: Cerebrovascular accident. COMPARISON STUDY: Chest radiograph September 23, 2017. FINDINGS: Chronic right-sided rib deformities are noted. There is no pneumothorax or pleural effusion. There is no consolidation. Mild cardiomegaly is noted. There is no evidence for pulmonary edema. IMPRESSION: No acute cardiopulmonary findings. Electronically signed by: Cristian Ramirez M.D. 07/29/2018 8:03 PM Dictated: 07/29/182001 Transcribed: 07/29/182001 ECG Additional Comments: NSR at 72bpm, no acute ischemic changes Code Status & VTE Plan Code Status FULL Critical Care Time Critical Care Time: No (1) Hypertension Hypertension type: essential hypertension Qualified Code(s): I10 - Essential (primary) hypertension (2) Diabetes Diabetes mellitus type: type 2 Diabetes mellitus custodial insulin use: without superintendent container terminal use Diabetes mellitus complication status: with neurologic complications Diabetes mellitus complication detail: with polyneuropathy Qualified Code(s): E11.42 - Type 2 diabetes mellitus with diabetic polyneuropathy (3) Coronary artery disease Coronary Disease-Associated Artery/Lesion type: hoh artery [place] vs. transplanted heart: hoh heart Associated angina: without angina Qualified Code(s): I25.10 - Atherosclerotic heart disease of hoh coronary artery without angina pectoris (4) Hypothyroid Hypothyroidism type: unspecified Qualified Code(s): E03.9 - Hypothyroidism, unspecified (5) GERD (gastroesophageal reflux disease) Esophagitis presence: esophagitis presence not specified Qualified Code(s): K21.9 - Gastro-esophageal reflux disease without esophagitis (6) CKD (chronic kidney disease) Chronic kidney disease stage: unspecified stage Qualified Code(s): N18.9 - Chronic kidney disease, unspecified (7) BPH (benign prostatic hyperplasia) Lower urinary tract symptom presence: symptoms present
[2018-07-30] MEDS ORDERED: GADOBUTROL 65ML VIAL IV PRN (03:00)
--- NOTE | 2018-07-30 06:22 | Magnetic Resonance Report ---
MR brain wo/w con CLINICAL HISTORY: CVA like symptoms stroke COMPARISON STUDY: No previous studies for comparison. TECHNIQUE: Utilizing a 1.5 Sandie magnet and dedicated coil, multiplanar, multiecho imaging of the br ain was performed pre and postcontrast administration. IV administration of 8.5 mL of Gadavist contr ast was uneventful. FINDINGS: Diffusion-weighted images are considered negative for an acute ischemic insult. There are f indings of mild age-related atrophy and chronic small vessel change. Postcontrast images are considered negative for an enhancing lesion. The ventricular system is midlin e. The sella and parasellar regions are unremarkable. IMPRESSION: 1. Age-related atrophy and chronic small vessel change. 2. Otherwise negative study. The above report was generated using voice recognition software. It may contain grammatical, syntax or spelling errors. Electronically signed by: Clayton Harris M.D. 07/30/2018 6:21 AM
--- NOTE | 2018-07-30 06:24 | Magnetic Resonance Report ---
MR angio head wo con HISTORY: Mental status change CVA like symptoms TECHNIQUE: 3-D [id number] MRA of the brain was performed without contrast. COMPARISON STUDY: None. FINDINGS: Visualized intracranial internal carotid arteries, distal vertebral arteries, and basilar a rtery are widely patent. There is no significant stenosis, occlusion, or aneurysm seen within the linden ateral ACAs, MCAs, or account support analyst. IMPRESSION: No significant stenosis, occlusion, or aneurysm within the [place] of [place]. The above report was generated using voice recognition software. It may contain grammatical, syntax or spelling errors. Electronically signed by: Clayton Harris M.D. 07/30/2018 6:23 AM
--- NOTE | 2018-07-30 06:33 | Magnetic Resonance Report ---
MR angio neck wo/w con HISTORY: Stroke CVA like symptoms TECHNIQUE: Multiaxial CT angiography of the neck was performed IV contrast: 7.5 cc Gadavist. A ll measurements were calculated based on NASCET criteria. Maximum intensity projection images were a lso obtained. A dose lowering technique was utilized adhering to the principles of ALARA. COMPARISON STUDY: None. FINDINGS: There is evidence for considerable motion artifact 60-70% stenosis right internal carotid a rtery. 60% stenosis left internal carotid artery. The vertebral basilar systems appear unremarkable. Mild poststenotic dilatation of the proximal left internal carotid artery. IMPRESSION: 1. 60-70% narrowing right internal carotid artery at its origin. 2. 60% stenosis left internal carotid artery at its origin. 3. No significant stenotic process of the vertebral basilar system. The above report was generated using voice recognition software. It may contain grammatical, syntax or spelling errors. Electronically signed by: Clayton Harris M.D. 07/30/2018 6:32 AM
[2018-07-30] MEDS: INSULIN GLARGINE SOLOSTAR 100 UNITS/ML 3 ML PEN SC SCH (07:51)
[2018-07-30] MEDS: INSULIN ASPART 100 UNITS/ML 3 ML PEN SC SCH ×2 (07:51→12:24)
[2018-07-30 08:24] LABS: Basophils # (auto) 0.07 K/uL (0-0.2); Basophils % (auto) 0.9 %; Eosinophils # (auto) 0.49 K/uL (0-0.5); Eosinophils % (auto) 6.4 %; Hematocrit (blood only) 33.6 % (42-52); Hemoglobin 11.6 g/dL (14.0-18.0); Immature Granulocytes # (auto) 0.02 K/uL (0.00-0.02); Immature Granulocytes % (auto) 0.3 %; Lymphocytes # (auto) 2.15 K/uL (1.2-3.4); Lymphocytes % (auto) 28.1 %; Mean Corpuscular Hgb Conc 34.5 g/dL (32-36); Mean Corpuscular Volume 90.6 fL (80-100); Mean Platelet Volume 10.7 fL (7.4-10.4); Monocytes # (auto) 0.84 K/uL (0.11-0.59); Neutrophils # (auto) 4.08 K/uL (1.4-6.5); Neutrophils % (auto) 53.3 %; Platelet Count 237 K/uL (130-400); RDW Coefficient of Variation 12.9 % (11.5-14.5); RDW Standard Deviation 42.7 fL (36.4-46.3); Red Blood Count 3.71 M/uL (4.7-6.1); White Blood Count 7.65 K/uL (4.8-10.8)
[2018-07-30] MEDS ORDERED: CLOPIDOGREL BISULFATE 75 MG TAB PO SCH (09:00)
[2018-07-30] MEDS ORDERED: ASPIRIN 81 MG ECTAB PO SCH (09:00)
[2018-07-30] MEDS ORDERED: CETIRIZINE HCL 10 MG TABLET PO SCH (09:00)
[2018-07-30] MEDS ORDERED: NON-FORMULARY MEDICATION (Coq10 (Ubiquinol) 200 MG) PO SCH (09:00)
[2018-07-30 09:01] LABS: BUN Creatinine Ratio 18.2 (10-20); Calcium 8.9 mg/dl (8.5-10.1); Creatinine Clr Calc Pharmacy 48.1 ml/min; Est GFR (African American) 61.2; Est GFR (Non-African American) 52.8; Potassium 4.2 mmol/L (3.5-5.1)
--- NOTE | 2018-07-30 10:32 | Neurology Consultation ---
Date of Consultation July 30, 2018 Assessment & Plan (1) TIA (transient ischemic attack): TIA characterized by transient aphasia and perhaps some associated poorly localizable weakness. This patient's weakness was not really focal and was described as stumbling while attempting to walk and is likely confounded by his underlying chronic unspecified myopathy. Transient aphasia would typically localize to the left cerebral hemisphere. 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 The patient is already taking Plavix and daily low-dose aspirin in light of his history of coronary artery disease. I do not believe that switching his aspirin to Aggrenox, while also taking Plavix, would provide any proven additional stroke risk benefit. I do agree with the increased dosage of atorvastatin. The observed carotid stenoses will need additional outpatient follow-up. An outpatient consultation with vascular surgery could be considered although it is not clear to me if either of the observed stenoses is clinically significant. I have no further immediate recommendations. Please contact me if you have any additional questions. History of Present Illness Reason for Consultation: stroke like symptoms Requesting Physician: Mario Attending Physician: Sheila Macedo MD History of Present Illness The patient is an 82-year-old male with a chief complaint of garbled speech that began acutely at around 5:30 last night while sitting on his porch at home with his . 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 Cartagena and has a pending appointment with a neuromuscular disease specialist at [facility]. His speech disturbance persisted for about 20 minutes and was characterized by nonsensical words. He denies any symptomatic recurrence at this time. Allergies Allergy/AdvReac Type Severity Reaction Status Date / Time Iodinated Contrast- Oral and Allergy Severe ANAPYLAXIS Verified 07/29/18 19:11 IV Dye shellfish derived Allergy Severe Anaphylaxis Verified 07/29/18 19:11 Home Medications Home Medications Medication Instructions Recorded Confirmed Type aspirin [Aspir-81] 81 mg PO DAILY 07/29/18 07/29/18 History atorvastatin 10 mg PO HS 07/29/18 07/29/18 History cetirizine [Zyrtec] 10 mg PO DAILY 07/29/18 07/29/18 History clopidogrel [Plavix] 75 mg PO QAM 07/29/18 07/29/18 History coQ10 (ubiquinol) 200 mg PO DAILY 07/29/18 07/29/18 History epinephrine [EpiPen] 0.3 mg IM DIRECTED PRN 07/29/18 07/29/18 History glimepiride 2 mg PO QAM 07/29/18 07/29/18 History levothyroxine 25 mcg PO QPM 07/29/18 07/29/18 History metformin 1,000 mg PO BIDM 07/29/18 07/29/18 History metoprolol succinate 75 mg PO QAM 07/29/18 07/29/18 History multivitamin 1 tab PO QAM 07/29/18 07/29/18 History nitroglycerin [Nitrostat] 0.4 mg SUBLINGUAL DIRECTED PRN 07/29/18 07/29/18 History pantoprazole 40 mg PO QPM 07/29/18 07/29/18 History ranitidine HCl 150 mg PO HS 07/29/18 07/29/18 History Patient History Medical History Coronary artery disease BPH (benign prostatic hyperplasia) CKD (chronic kidney disease) Diabetes Dyslipidemia GERD (gastroesophageal reflux disease) Hypertension Hypothyroid Surgical History S/P cardiac catheterization Family History Other Family history non-contributory Social History Preferred Language: [place] Communication Ability: Effective Brusher And Shearer Required: No Beliefs That Will Affect Care: None marital status: Current Living Situation: Spouse current occupational status: retired Other Information That Helps Us Care for You: No Feels Safe at Home: Yes Safety Concerns: Feels Safe At This Time Smoking Status: Former smoker Tobacco Type: cigarettes Smoking End Date: 1992 Second Hand Exposure: Yes Tobacco Cessation Education Requested by Patient: No Hx Alcohol Use: No Hx Substance Use: No Review of Systems Constitutional: no fever and no chills Eyes: no blind spots and no diplopia Ear, Nose, Mouth, Throat: no tinnitus and no hearing loss Respiratory: no cough and no dyspnea Cardiovascular: no chest pain and no palpitations Gastrointestinal: no nausea and no vomiting Genitourinary: no dysuria and no urinary incontinence Musculoskeletal: as per Subjective / HPI and + muscle weakness Integumentary: no rash and no lesions Neurologic: as per Subjective / HPI Psychiatric: no depression and no anxiety Hematologic / Lymphatic: no easy bleeding Physical Exam Physical Exam: The patient is a well-developed well-nourished elderly male. He is alert and fully oriented. Recent and remote memory intact. Attention and concentration normal. Patient exhibits a normal spontaneous speech pattern. He is able to name objects, repeat phrases, and read text without difficulty. Patient exhibits an age-appropriate fund of knowledge and normal vocabulary. V isual silverman full to confrontation. Visual acuity normal. Pupils equal round react to light and accommodation. Eye movements normal. There is no nystagmus. Facial sensation intact. There is no facial droop or weakness. Hearing intact. Palate elevates to midline. Shoulder shrug intact. Tongue protrudes to midline. Sensation intact to all modalities in all 4 limbs. Deep tendon reflexes are intact and symmetrical for the arms and legs. Plantar responses downgoing bilaterally. There is no dysdiadochokinesia or dysmetria [id number] or [id number]. Ophthalmoscopic examination reveals normal- appearing optic disks and posterior segments. No papilledema or hemorrhages. Carotid pulses normal bilaterally, no bruits to auscultation. Gait and station not tested due to safety concerns. Patient exhibits mild generalized weakness, proximal greater than distal for all 4 limbs. Muscle tone normal throughout. No atrophy. No abnormal movements observed. Results & Data Vital Signs (Past 12 Hours) Vital Signs Temp Pulse Resp BP BP Pulse Ox 07/30/18 07:45 36.6 C 67 17 176/74 H 97 07/30/18 03:30 36.3 C L 61 18 171/80 H 99 07/29/18 22:42 36.4 C L 72 18 165/73 H 98 Laboratory Results Labs completed this morning reviewed. WBC 7.65, hemoglobin 11.6, platelet count 237, sodium 136, BUN 23, creatinine 1.26, glucose [address] of the head completed yesterday was negative for acute process. An MRI of the brain revealed age-related atrophy and chronic small vessel ischemic change. No evidence for acute or subacute stroke. Images and report reviewed. MRA of the neck revealed a 60 to 70% narrowing of the right internal carotid artery at its origin and a 60% stenosis of the left internal carotid artery at its origin. MRA of the head was negative for stenosis, occlusion, or aneurysm. An echocardiogram was negative for cardioembolic source. Normal left ventricular systolic function. No PFO. Electrocardiogram revealed a normal sinus rhythm, 72 bpm.
[2018-07-30 11:20] LABS: iSTAT Creatinine 1.5 mg/dl (0.6-1.3); iSTAT Hemoglobin 12.6 g/dl (14.0-18.0); iSTAT Ionized Calcium 1.15 mmol/l (1.12-1.32); iSTAT Potassium 4.4 mEq/L (3.3-5.0)
[2018-07-30] MEDS ORDERED: STROKE PATIENT DISCHARGE STA (16:10)
--- NOTE | 2018-07-30 16:21 | Discharge Summary ---
Date of Service July 30, 2018 Admission HPI Per Admitting Provider Mr. 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 He reports that he ate his supper and went to sit on the porch. He was trying to talk with his and states he was speaking with nonsensical words and syllables. He knew what he wanted to say but was unable to speak appropriate words. Symptoms lasted approximately 20 minutes then resolved. He denies numbness/weakness/visual changes or facial droop. He had a mild headache following the event. Presently feels normal. states he is back to his baseline status. 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 EMG was performed which suggested a mild myopathy. He was treated with steroids with minimal improvement. Follows with Dr. Cartagena - last seen on 10 July. He was referred to the neuromuscular clinic at [place] for possible muscle biopsy. states that he has a shuffling gait and his balance was worse than usual today. They travelled to [place] over the weekend. ER Course: ASA 324mg, NSS Principal Diagnosis TIA Discharge Exam Constitutional WD/WN, vitals as above cooperative Eyes PERRL, conjunctivae normal, anicteric sclerae ENMT external ear and nose normal, oropharynx normal Neck trachea midline Thyroid: normal thyroid Respiratory normal respiratory effort, lungs clear to auscultation Cardiovascular RRR, no murmur, no edema Gastrointestinal (Abdomen) normal bowel sounds, soft, nontender, no hepatosplenomegaly Musculoskeletal Head/Neck/Chest: + head abnormal to inspection and normocephalic Extremities: + abnormal strength (mild proximal muscle weakness) Neurologic PERRL, EOMI, accommodation nl, no face palsy, no dysarthria CN's II-XI intact bilaterally, moves all extremities and awake Discharge Data Allergies Allergy/AdvReac Type Severity Reaction Status Date / Time Iodinated Contrast- Oral and Allergy Severe ANAPYLAXIS Verified 07/29/18 19:11 IV Dye shellfish derived Allergy Severe Anaphylaxis Verified 07/29/18 19:11 Consultations 07/29/18 22:33 Consult Case Management - Discharge Planning Routine Consult Neurology Routine 07/30/18 15:00 Consult [facility] eeler Routine Ordered Studies 07/29/18 18:53 CT head/brain wo con Stat 07/30/18 00:12 MR angio head wo con Urgent MR brain wo/w con Routine 07/30/18 00:13 MR angio neck wo/w con Routine Hospital Course (1) TIA (transient ischemic attack): 82 y/o F with episode of aphasia lasting approximately 20 minutes on day of admission. Has since resolved to baseline functional status. 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 Concern for TIA/CVA resulting in Wernicke's pattern of aphasia -MRI brain showed no acute pathology, MRA head and neck showed stenosis of 60-7 0% bilaterally -Echocardiogram reveals no cardiac source of emboli, -A1C pending on discharge -Lipid panel in March with LDL=74, HDL=38, normal LFTs -Atorvastatin increased to 40mg po qHS. Concern that this may worsen patient's myopathy - he will need to be closely monitored in the outpatient setting. Continue CoQ10 -Continue ASA and Plavix - on it since for cardiac stents. Per neuro - Will continue this for now, no likely benefit from changing to Aggrenox -Neurology follow up as outpatient. ----Inpatient notes: "The observed moderate bilateral internal carotid artery stenoses are of uncertain clinical significance. outpatient consultation with vascular surgery could be considered although it is not clear to me if either of the observed stenoses is clinically significant." -PT and speech felt that no further intervention required. Elevated right side pressure on Echo - 50-60mmHg. Consider outpatient sleep study. Hypertension: Blood pressure mildly elevated. -Metoprolol held x 24 hrs for permissive hypertension Diabetes: Blood anfyg=628. -A1c pending at the time of discharge. -home regimen, Coronary artery disease: Patient with history of CAD s/p stent to mid LAD in April 2003 and EN to distal LAD in March 2018. On DAPT with ASA and Plavix since 2003. On Atorvastatin 10mg daily. He follows with Dr. Ortiz and was last seen on 17 July 2018. He has been stable from a CAD standpoint. -Continue ASA and Plavix -statin dose increased CKD (chronic kidney disease): Near baseline Hypothyroid: Chronic -Continue Synthroid GERD (gastroesophageal reflux disease): Chronic. Stable -Continue Protonix -Continue Ranitidine Dyslipidemia: Lipid results as above -Increase Atorvastatin BPH (benign prostatic hyperplasia): Patient with BPH. Reports increased urinary frequency and nocturia. No dysuria -UA neg, culture pending -Consider initiating Flomax Code -Full per discussion with patient Total Time Total Time Spent Total Time Spent (In Minutes): 30 Discharge Plan Discharge Items Patient Disposition: Home - Self-Care Reason For Visit: STROKE-LIKE SYMPTOMS Discharge Diagnosis: TIA Discharge Goals: Prevent disease and Therapeutic intervention Activity: Per 'Additional Instructions' section Non-emergency contact: Primary Care Provider Call non-emergency contact if: your symptoms worsen Follow-up/Referrals: Kulwinder Jaramillo MD [Primary Care Provider] - Diet: Heart Healthy Addtl Provider Instructions: During this admission to the hospital you were evaluated for abnormal speech. This symptom is typical of a "transient ischemic attack" which is commonly referred to as a "mini stroke". The scans of your head did not show any damage to the brain (as would be seen in an actual stroke), which is reassuring. To manage this condition, we optimize your risk factors to prevent another one from happening. Because of your recent heart stents, you are already taking most of the medication required. The only change to your medication is going to be an increase in your atorvastatin from 10mg to 40mg daily. You will need to follow up with your primary care doctor within the next 7-10 days. You will also need to follow up with the neurology doctors. Both of these appointments will be set up for you. If you notice your symptoms return, or if you notice new symptoms, do not hesitate to return to the emergency room. Prescriptions: New atorvastatin 20 mg Tablet 40 mg PO HS 30 Days Qty: 60 RF: 0 Continued multivitamin Tablet 1 tab PO QAM RF: 0 cetirizine [Zyrtec] 10 mg Tablet 10 mg PO DAILY RF: 0 metoprolol succinate 50 mg Tablet Extended Release 24 Hr 75 mg PO QAM RF: 0 clopidogrel [Plavix] 75 mg Tablet 75 mg PO QAM RF: 0 aspirin [Aspir-81] 81 mg Tablet,Delayed Release (Dr/Ec) 81 mg PO DAILY RF: 0 glimepiride 2 mg Tablet 2 mg PO QAM RF: 0 levothyroxine 25 mcg Tablet 25 mcg PO QPM RF: 0 pantoprazole 40 mg Tablet,Delayed Release (Dr/Ec) 40 mg PO QPM RF: 0 metformin 1,000 mg Tablet 1,000 mg PO BIDM RF: 0 ranitidine HCl 150 mg Tablet 150 mg PO HS RF: 0 nitroglycerin [Nitrostat] 0.4 mg Tablet, Sublingual 0.4 mg sublingual DIRECTED PRN (Reason: Chest Pain) RF: 0 epinephrine [EpiPen] 0.3 mg/0.3 mL Auto-Injector 0.3 mg IM DIRECTED PRN (Reason: Allergic Reaction) RF: 0 coQ10 (ubiquinol) 200 mg Capsule 200 mg PO DAILY RF: 0 Discontinued atorvastatin 20 mg Tablet 10 mg PO HS RF: 0 Stand-Alone Forms: My [facility]/Other Patient Handouts: TIA, Attack Transient Ischemic Dc Discharge Orders: Discharge Order (Routine); Ordered 07/30/18 Ordered By: Alejandrina Sarmiento Admission Data Admit Date/Time: 07/29/18 21:55 Attending Provider: Sheila Macedo Admit Provider: Eugenia Martin Primary Care Provider: Kulwinder Jaramillo Other Providers: Cuauhtemoc Melgar ; Singh Sargent III ; Halie Cartagena ; Sagrario Wick ; Neal Mcgrath ; Eugenia Martin Service: Telemetry Other Interventions: Discharge Summary Assessment (RN) Last Done: 07/30/18 16:14 DC Date/Time DO NOT enter until pt leaves facility: 07/30/18 16:48 Supervising Physician Co-Signing Physician Notes Resident Physician Supervision Note: I independently interviewed and examined the patient and verified the [place]kee[place] history and physical, reviewed labs and image studies, discussed the case with the resident Dr. Sarmiento and agree with the findings and care plan. Time spent in discharge 35 min Resident Activity Tracking Resident Involvement: Resident Care Provided Care Provided: Adult Hospital Medicine
[2018-07-30] MEDS ORDERED: LEVOTHYROXINE SODIUM 25 MCG TABLET PO SCH (21:00)
[2018-07-30] MEDS ORDERED: ATORVASTATIN 20 MG TAB PO SCH (21:00)
[2018-07-30] MEDS ORDERED: PANTOprazole 40 MG TAB PO SCH (21:00)
[2018-07-31 06:03] LABS: Estimated Average Glucose 177 mg/dl; Hemoglobin A1C 7.8 % (4.5-5.6)
== END 2018-07-30 16:48 | disposition home or self-care (01) | DRG 69 ==
LOC: ED 18:35 → SUATTDRO 21:55 → 2S 21:55

== ENCOUNTER 2019-01-17 18:05 | Inpatient (IN) ==
[2019-01-17] MEDS ORDERED: SODIUM CHLORIDE 0.9% 1000ML 1,000 ML IV SCH (18:30)
[2019-01-17 18:59] LABS: Basophils # (auto) 0.03 K/uL (0-0.2); Basophils % (auto) 0.2 %; Eosinophils # (auto) 0.08 K/uL (0-0.5); Eosinophils % (auto) 0.5 %; Hematocrit (blood only) 39.1 % (42-52); Hemoglobin 14.2 g/dL (14.0-18.0); Immature Granulocytes # (auto) 0.09 K/uL (0.00-0.02); Immature Granulocytes % (auto) 0.6 %; Lymphocytes # (auto) 1.54 K/uL (1.2-3.4); Lymphocytes % (auto) 9.7 %; Mean Corpuscular Hemoglobin 31.6 pg (25-34); Mean Corpuscular Hgb Conc 36.3 g/dL (32-36); Mean Corpuscular Volume 87.1 fL (80-100); Mean Platelet Volume 10.3 fL (7.4-10.4); Platelet Count 293 K/uL (130-400); RDW Coefficient of Variation 12.6 % (11.5-14.5); RDW Standard Deviation 40.4 fL (36.4-46.3); Red Blood Count 4.49 M/uL (4.7-6.1); White Blood Count 15.94 K/uL (4.8-10.8)
[2019-01-17 19:03] LABS: HCO3 VBG 22 mmol/L; Oxygen Saturation VBG < 60.0 %; PCO2 VBG 39 mmHg (38-50); PO2 VBG 22 mmHg; pH VBG 7.37 (7.36-7.41)
[2019-01-17 19:10] LABS: INR 1.1 (0.9-1.1); Partial Thromboplastin Ratio 1.1; Partial Thromboplastin Time 28.9 Seconds (21.0-31.0); Prothrombin Time 10.9 Seconds (9.0-12.0)
[2019-01-17 19:37] LABS: Alanine Aminotransferase 29 U/L (12-78); Albumin Globulin Ratio 0.8 (0.9-2); Albumin Level 3.6 gm/dl (3.4-5.0); Alkaline Phosphatase 109 U/L (45-117); Aspartate Aminotransferase 31 U/L (15-37); BUN Creatinine Ratio 15.9 (10-20); Bilirubin,Total 0.8 mg/dl (0.2-1); Blood Urea Nitrogen 17 mg/dl (7-18); Carbon Dioxide 21 mmol/L (21-32); Chloride 86 mmol/L (98-107); Creatinine Clr Calc Pharmacy 53.7 ml/min; Est GFR (African American) 72.4; Est GFR (Non-African American) 62.4; Globulin 4.5 gm/dl (2.5-4.0); Glucose 183 mg/dl (70-99); Magnesium 1.8 mg/dl (1.8-2.4); Potassium 4.6 mmol/L (3.5-5.1); Sodium 119 mmol/L (136-145); Total Protein 8.1 gm/dl (6.4-8.2); Troponin I 0.031 ng/ml (0-0.045)
--- NOTE | 2019-01-17 19:38 | CT Scan Report ---
CT OF THE HEAD WITHOUT CONTRAST CLINICAL HISTORY: Weakness. COMPARISON STUDY: No previous studies for comparison. CT DOSE: 614.27 mGy.cm TECHNIQUE: Helical axial images of the head were obtained without IV contrast. Automated exposure con trol was utilized for the study. A dose lowering technique was utilized adhering to the principles o f ALARA. FINDINGS: No acute intracranial hemorrhage, midline shift or mass effect is present. Mild ventricular dilatation is due to atrophy. The basilar cisterns are patent. No extra-axial collections are presen t. There are no findings to suggest acute dural sinus thrombosis or acute territorial infarct. No sig nificant calvarial abnormalities are present. Visualized portions of the sinuses and mastoid air cell s are clear. White matter hypodensity suggests small vessel disease. IMPRESSION: No acute intracranial findings. Electronically signed by: Cristian Ramirez M.D. 01/17/2019 7:36 PM
--- NOTE | 2019-01-17 19:40 | XRay Report ---
XR soft tissue neck CLINICAL HISTORY: drooling COMPARISON STUDY: No previous studies for comparison. FINDINGS: Prevertebral soft tissues are unremarkable. Epiglottis is likely normal. The pharynx is dis tended. No fracture shown within visualized portions of the cervical spine. IMPRESSION: 1. No significant abnormality within the neck by radiography. 2. Mild pharyngeal distention. Electronically signed by: Cristian Ramirez M.D. 01/17/2019 7:39 PM
--- NOTE | 2019-01-17 19:41 | XRay Report ---
XR chest 1V portable CLINICAL HISTORY: weakness COMPARISON STUDY: No previous studies for comparison. FINDINGS: Lung volumes are normal. Lungs are clear. There is no pneumothorax or pleural effusion. Car diac size is normal. Mediastinal contours are normal. There is no evidence for pulmonary edema. Minim al congenital right rib deformities are noted. Kyphotic positioning is noted. IMPRESSION: No acute cardiopulmonary findings. Electronically signed by: Cristian Ramirez M.D. 01/17/2019 7:39 PM
--- NOTE | 2019-01-17 19:42 | XRay Report ---
KUB CLINICAL HISTORY: Abdominal pain. COMPARISON STUDY: None. FINDINGS: No dilated loops of bowel are identified. Pelvic calcifications favor phleboliths. No suspi cious lesions are identified within visualized skeletal structures. Lung bases are clear. IMPRESSION: No evidence for a bowel obstruction. Electronically signed by: Cristian Ramirez M.D. 01/17/2019 7:40 PM
[2019-01-17] MEDS ORDERED: FAMOTIDINE 20MG/5ML IV PUSH IV STA (20:05)
[2019-01-17] MEDS ORDERED: methylPREDNISolone 125 MG/2 ML VIAL IV STA (20:05)
[2019-01-17 20:19] LABS: Creatine Kinase 173 U/L (39-308); Creatine Kinase MB 5.1 ng/ml (0.5-3.6)
[2019-01-17 20:28] LABS: Appearance Urine Clear (Clear); Bacteria Urine Automated Negative (Negative); Bilirubin Urine Negative (Negative); Blood Urine Trace (Negative); Color Urine Yellow; Glucose Urine UA 3+ (Negative); Leukocyte Esterase Urine Negative (Negative); Nitrite Urine Negative (Negative); Protein Urine Trace (Negative); RBC Urine Automated 0-4 /hpf (0-4); Specific Gravity Urine 1.027 (1.000-1.030); Urobilinogen Urine Negative (Negative)
[2019-01-17 20:35] LABS: Ketones Urine 3+ (Negative)
[2019-01-17] MEDS ORDERED: OPTIRAY 320 125ml IV PRN (21:05)
--- NOTE | 2019-01-17 21:26 | CT Scan Report ---
CT ANGIOGRAPHY OF THE CHEST, PULMONARY EMBOLUS PROTOCOL CLINICAL HISTORY: Shortness of breath. COMPARISON STUDY: Chest radiograph performed earlier today. TECHNIQUE: Patient was premedicated for IV dye allergy as per ED protocol. Following IV administratio n of 117 mL of Optiray-320, helical axial images of the chest were obtained utilizing the pulmonary e mbolus protocol. Maximal intensity projections and sagittal and coronal reformats were viewed on an independent 3D workstation. IV contrast was administered without complication. Automated exposure c ontrol was utilized for the study. A dose lowering technique was utilized adhering to the principles of ALARA. CT DOSE: 1116.72 mGy.cm FINDINGS: No pulmonary emboli are identified although the segmental and subsegmental pulmonary arter ies within the lower lobes are suboptimally assessed due to respiratory motion. There is no thoracic aortic dissection. The heart is mildly enlarged. Extensive coronary artery calcification is present. Right lower lobe subpleural opacity favors atelectasis. There is no consolidation to suggest pneumoni a. Central airways are patent. Old right chest wall deformity is noted. There are subacute nondisplac ed bilateral fifth rib fractures. There is no pneumothorax or pleural effusion. Abdomen and pelvis wi ll be reported separately. No suspicious osseous lesions are noted. There is no thoracic lymphadenopa thy. IMPRESSION: 1. No pulmonary emboli identified although lower lobe segmental and subsegmental pulmonary arteries s uboptimally assessed due to respiratory motion. 2. Right lower lobe opacity suggestive of atelectasis. 3. Mild cardiomegaly. Extensive coronary artery calcification. Electronically signed by: Cristian Ramirez M.D. 01/17/2019 9:25 PM
[2019-01-17] MEDS ORDERED: SODIUM CHLORIDE 0.9% 1000ML 1,000 ML IV ONE (21:28)
--- NOTE | 2019-01-17 21:35 | CT Scan Report ---
CT OF THE ABDOMEN AND PELVIS WITH CONTRAST CLINICAL HISTORY: unable to eat COMPARISON STUDY: KUB performed earlier today. TECHNIQUE: Patient was premedicated for IV dye allergy as per your protocol pre-Following IV administ ration of 117 mL of Optiray-320, axial images of the abdomen and pelvis were obtained from the lung b ases to the proximal femurs. Images were reviewed in the axial, sagittal, and coronal planes. IV cont rast was administered without complication. Automated exposure control was utilized for the study. A dose lowering technique was utilized adhering to the principles of ALARA. FINDINGS: No pneumatosis, free air or portal venous gas is present. The chest will be reported separa tely. The liver, spleen, adrenal glands and kidneys are unremarkable. Pancreatic glandular atrophy is noted. There is no biliary or pancreatic ductal dilatation. No hydronephrosis is present. There is n o evidence for a bowel obstruction. Caliber and wall thickness of small and large bowel are normal. N o lymphadenopathy is present. There is moderate plaque of the abdominal aorta. No aneurysmal dilatati on is present. There is trace presacral infiltration. No suspicious osseous lesions are noted. Subcen timeter right renal lesion favors a cyst. IMPRESSION: 1. No acute process within the abdomen or pelvis. 2. No bowel obstruction. No bowel wall thickening. Electronically signed by: Cristian Ramirez M.D. 01/17/2019 9:34 PM
--- NOTE | 2019-01-17 22:15 | Emergency Department Note ---
Entered by Deion Jiménez acting as a scribe for History of Present Illness General Chief complaint: Altered Mental Status Time Seen by Provider: 01/17/19 18:06 Source: RN notes reviewed Limitations: altered mental status History of Present Illness Onset (ago): day(s) (yesterday) Location: mouth (throat) Pain Consistency: + constant Quality: + other (drooling) Associated symptoms: + denies other symptoms (falls); no fever/chills and no nausea/vomiting The patient is a 83 year old male who presents to the Emergency Room with complaints of constant altered mental status. Nursing states the patient's home health nurse was worried about the patient so he was sent to the ED. Nursing states the patient has not been eating and drinking regularly. Nursing states the patient has been having increased secretions. HPI is limited secondary to altered mental status. Per , the patient was diagnosed with ALS 2 months ago. She states the patient did not eat anything all day yesterday. She states this is the first time the patient has not eaten. She states the patient was coughing all day yesterday. She notes the patient has been taking his medicines but did not take it today. She notes the patient's throat does not seem to move when she put the medicine in his mouth. She states the patient's talking has been getting worse everyday. She denies the patient having any fevers, vomiting, falls, and taking any new medications. She states it does not seem like the patient is chocking on the medicine. She states the last thing the patient ate was oatmeal. She states the patient has been eating sandwiches for lunch. She states the patient has never had any problems with his esophagus. She states the patient's PCP is Dr. Kulwinder Jaramillo. She notes the patient's home health nurse states the patient should be put in hospice care. Home Medications Home Medications Medication Instructions Recorded Confirmed Type aspirin [Aspir-81] 81 mg PO HS 01/17/19 01/17/19 History atorvastatin 40 mg PO HS 01/17/19 01/17/19 History clopidogrel [Plavix] 75 mg PO DAILY 01/17/19 01/17/19 History glimepiride 2 mg PO QAM 01/17/19 01/17/19 History levothyroxine 25 mcg PO HS 01/17/19 01/17/19 History metformin 1,000 mg PO BID 01/17/19 01/17/19 History metoprolol succinate 50 mg PO DAILY 01/17/19 01/17/19 History multivitamin 1 tab PO DAILY 01/17/19 01/17/19 History nitroglycerin 0.4 mg SUBLINGUAL UD PRN 01/17/19 01/17/19 History pantoprazole 40 mg PO DAILY 01/17/19 01/17/19 History polyethylene glycol 3350 [Miralax] 17 g PO DAILY 01/17/19 01/17/19 History ranitidine HCl 150 mg PO HS 01/17/19 01/17/19 History Allergies Allergy/AdvReac Type Severity Reaction Status Date / Time Iodine and Iodide Containing Allergy Severe Anaphylaxis Verified 01/17/19 19:12 Produc shellfish derived Allergy Anaphylaxis Verified 01/17/19 19:12 Past Med/Surg History Medical History ALS (amyotrophic lateral sclerosis) diagnosed October 2018 at [place] CAD (coronary artery disease) Diabetes History of cataract Hypertension Hypothyroid Surgical History History of heart artery stent History of vasectomy Family History Other Diabetes Hypertension Social History Preferred Language: Spanish Communication Ability: Impaired Communication Ability Comment: Limited ability to respond. Nursing Home Aide Required: No Beliefs That Will Affect Care: None Current Living Situation: Spouse Other Information That Helps Us Care for You: No Feels Safe at Home: Yes Safety Concerns: Feels Safe At This Time Smoking Status: Former smoker Hx Alcohol Use: No Hx Substance Use: No Review of Systems See HPI for pertinent positives & negatives. and A total of 10 systems reviewed and were otherwise negative Physical Exam Vital Signs Vital Signs - 24 hr 01/17/19 18:25 01/17/19 19:04 01/17/19 21:20 Temperature 37.0 C Temperature Source Oral Sepsis Recent Fever Within 48 Hours No Sepsis Action Taken by Nursing No Action Required Pulse Rate 86 Pulse Rate [Apical] 85 88 Pulse Rhythm Regular Pulse Strength Normal Respiratory Rate 20 20 18 Respiratory Effort / Characteristics Non-Labored Non-Labored Spontaneous Non-Labored Spontaneous Respiratory Depth Normal Normal Normal Blood Pressure 167/88 H Blood Pressure [Right Arm] 167/88 H 189/72 H Blood Pressure Mean 114 Blood Pressure Mean [Right Arm] 114 111 Blood Pressure Position Lying Pulse Oximetry 96 95 96 Oxygen Delivery Method Room Air Room Air Room Air 01/17/19 23:24 Temperature Temperature Source Sepsis Recent Fever Within 48 Hours Sepsis Action Taken by Nursing Pulse Rate Pulse Rate [Apical] 80 Pulse Rhythm Pulse Strength Respiratory Rate 18 Respiratory Effort / Characteristics Respiratory Depth Blood Pressure Blood Pressure [Right Arm] 138/66 Blood Pressure Mean Blood Pressure Mean [Right Arm] 90 Blood Pressure Position Pulse Oximetry 95 Oxygen Delivery Method Room Air GENERAL: Responds to loud verbal commands slowly but appropriately. EYES: Pupils are restrictive but reactive to light bilaterally. EARS, NOSE, MOUTH AND THROAT: The nose is without any evidence of any deformity. Mucous membranes are moist. Tongue is midline. Tongue is erythematous with whitish coating. Patient is drooling. NECK: The neck is nontender and supple. RESPIRATORY: Shallow respirations were noted. No abnormal lung sounds were noted. CARDIOVASCULAR: Regular rate and rhythm noted. There no murmurs rubs or gallops normal S1 normal S2 GASTROINTESTINAL: The abdomen is soft. Bowel sounds are present in all quadrants. Abdomen is nontender. MUSCULOSKELETAL/EXTREMITIES: There is no evidence of gross deformity. Full range of motion is noted in the hips and shoulders. SKIN: There is no obvious evidence of any rash. There are no petechiae, pallor or cyanosis noted. NEUROLOGIC: Follows commands. Strength is diminished but symmetric. Course 1808: The patient was evaluated in room C10, and a complete history and physical examination were performed. 2149: I discussed the patient's case with - [facility]. She will evaluate the patient for further management. Administered Medications Ioversol (Optiray 320 125ml) 117 ml IV ONCE PRN PRN Reason: Interaction Checking Stop: 01/21/19 21:04 Last Admin: 01/17/19 21:05 Dose: 117 ml Documented by: [id number] Discontinued Medications Famotidine (Pepcid 20mg Iv Push) 20 mg IV ONE STA Stop: 01/17/19 20:06 Last Admin: 01/17/19 20:35 Dose: 20 mg Documented by: [id number] Sodium Chloride (Nss 1000ml) 1,000 mls @ 999 mls/hr IV .Q1H1M ABDIAS Stop: 01/17/19 19:30 Last Infusion: 01/17/19 21:21 Dose: 0 mls/hr Documented by: [id number] Admin: 01/17/19 18:59 Dose: 999 mls/hr Documented by: [id number] Sodium Chloride (Nss 1000ml) 1,000 mls @ 999 mls/hr IV .Q1H1M ONE Stop: 01/17/19 22:28 Last Infusion: 01/18/19 00:08 Dose: 0 mls/hr Documented by: [id number] Admin: 01/17/19 21:34 Dose: 999 mls/hr Documented by: [id number] Methylprednisolone (Solumedrol) 125 mg IV NOW STA Stop: 01/17/19 20:06 Last Admin: 01/17/19 20:35 Dose: 125 mg Documented by: [id number] Medical Decision Making Differential Diagnosis Differential diagnoses includes but is not limited to gastritis, peptic ulcer disease, GERD, gallbladder disease, pancreatitis, small bowel obstruction, acute coronary syndrome, pericarditis, ischemic bowel, irritable bowel disease, irritable bowel syndrome, appendicitis, diverticulitis, malignancy, hernia, urinary tract infection, torsion, perforation, trauma, infectious. Medical Records Attestation: I reviewed the patient's medical records. Home Medications Current Medication List: was personally reviewed by me Laboratory Data Attestation: I reviewed the patient's lab results. Result diagrams: 01/17/19 18:46 01/17/19 23:21 Lab Results 01/17/19 01/17/19 01/17/19 Range/Units 18:46 18:46 18:46 WBC 15.94 H (4.8-10.8) K/uL RBC 4.49 L (4.7-6.1) M/uL Hgb 14.2 (14.0-18.0) g/dL Hct 39.1 L (42-52) % MCV 87.1 (80-100) fL MCH 31.6 (25-34) pg MCHC 36.3 H (32-36) g/dL RDW Std Deviation 40.4 (36.4-46.3) fL RDW Coeff of Praveena 12.6 (11.5-14.5) % Plt Count 293 (130-400) K/uL MPV 10.3 (7.4-10.4) fL Immature Gran % (Auto) 0.6 % Neut % (Auto) 79.0 % Lymph % (Auto) 9.7 % Crosby % (Auto) 10.0 % Eos % (Auto) 0.5 % Baso % (Auto) 0.2 % Immature Gran # (Auto) 0.09 H (0.00-0.02) K/uL Neut # (Auto) 12.60 H (1.4-6.5) K/uL Lymph # (Auto) 1.54 (1.2-3.4) K/uL Crosby # (Auto) 1.60 H (0.11-0.59) K/uL Eos # (Auto) 0.08 (0-0.5) K/uL Baso # (Auto) 0.03 (0-0.2) K/uL PT 10.9 (9.0-12.0) Seconds INR 1.1 (0.9-1.1) APTT 28.9 (21.0-31.0) Seconds PTT Ratio 1.1 VBG pH (7.36-7.41) VBG pCO2 (38-50) mmHg VBG pO2 mmHg VBG HCO3 mmol/L VBG O2 Saturation % VBG Base Excess mEq/L Barometric Pressure mm/Hg Sodium 119 L* (136-145) mmol/L Potassium 4.6 (3.5-5.1) mmol/L Chloride 86 L (98-107) mmol/L Carbon Dioxide 21 (21-32) mmol/L Anion Gap 12.0 H (3-11) BUN 17 (7-18) mg/dl Creatinine 1.09 (0.6-1.4) mg/dl Est Cr Clr Drug Dosing 53.7 ml/min Est GFR ( Amer) 72.4 Est GFR (Non-Af Amer) 62.4 BUN/Creatinine Ratio 15.9 (10-20) Glucose 183 H (70-99) mg/dl Osmolality (280-300) mOsm/kg Calcium 9.0 (8.5-10.1) mg/dl Magnesium 1.8 (1.8-2.4) mg/dl Total Bilirubin 0.8 (0.2-1) mg/dl AST 31 (15-37) U/L ALT 29 (12-78) U/L Alkaline Phosphatase 109 (45-117) U/L Ammonia (11-32) umol/L Total Creatine Kinase 173 (39-308) U/L CK-MB (CK-2) 5.1 H (0.5-3.6) ng/ml CK/CKMB % Calc Not Reportable Troponin I 0.031 (0-0.045) ng/ml Total Protein 8.1 (6.4-8.2) gm/dl Albumin 3.6 (3.4-5.0) gm/dl Globulin 4.5 H (2.5-4.0) gm/dl Albumin/Globulin Ratio 0.8 L (0.9-2) TSH 3.030 (0.300-4.500) uIu/ml Urine Color Urine Appearance (Clear) Urine pH (4.5-7.5) Ur Specific [place] (1.000-1.030) Urine Protein (Negative) Urine Glucose (UA) (Negative) Urine Ketones (Negative) Urine Blood (Negative) Urine Nitrite (Negative) Urine Bilirubin (Negative) Urine Urobilinogen (Negative) Ur Leukocyte Esterase (Negative) Urine WBC (Auto) (0-5) /hpf Urine RBC (Auto) (0-4) /hpf U Hyaline Cast (Auto) (0-5) /lpf U Epithel Cells (Auto) (0-5) /lpf Urine Bacteria (Auto) (Negative) Urine Osmolality (500-800) mOsm/kg Ur Random Sodium mmol/L 01/17/19 01/17/19 01/17/19 Range/Units 18:46 18:46 18:47 WBC (4.8-10.8) K/uL RBC (4.7-6.1) M/uL Hgb (14.0-18.0) g/dL Hct (42-52) % MCV (80-100) fL MCH (25-34) pg MCHC (32-36) g/dL RDW Std Deviation (36.4-46.3) fL RDW Coeff of Praveena (11.5-14.5) % Plt Count (130-400) K/uL MPV (7.4-10.4) fL Immature Gran % (Auto) % Neut % (Auto) % Lymph % (Auto) % Crosby % (Auto) % Eos % (Auto) % Baso % (Auto) % Immature Gran # (Auto) (0.00-0.02) K/uL Neut # (Auto) (1.4-6.5) K/uL Lymph # (Auto) (1.2-3.4) K/uL Crosby # (Auto) (0.11-0.59) K/uL Eos # (Auto) (0-0.5) K/uL Baso # (Auto) (0-0.2) K/uL PT (9.0-12.0) Seconds INR (0.9-1.1) APTT (21.0-31.0) Seconds PTT Ratio VBG pH 7.37 (7.36-7.41) VBG pCO2 39 (38-50) mmHg VBG pO2 22 mmHg VBG HCO3 22 mmol/L VBG O2 Saturation < 60.0 % VBG Base Excess -3.0 mEq/L Barometric Pressure 734.9 mm/Hg Sodium (136-145) mmol/L Potassium (3.5-5.1) mmol/L Chloride (98-107) mmol/L Carbon Dioxide (21-32) mmol/L Anion Gap (3-11) BUN (7-18) mg/dl Creatinine (0.6-1.4) mg/dl Est Cr Clr Drug Dosing ml/min Est GFR ( Amer) Est GFR (Non-Af Amer) BUN/Creatinine Ratio (10-20) Glucose (70-99) mg/dl Osmolality 263 L (280-300) mOsm/kg Calcium (8.5-10.1) mg/dl Magnesium (1.8-2.4) mg/dl Total Bilirubin (0.2-1) mg/dl AST (15-37) U/L ALT (12-78) U/L Alkaline Phosphatase (45-117) U/L Ammonia 15.0 (11-32) umol/L Total Creatine Kinase (39-308) U/L CK-MB (CK-2) (0.5-3.6) ng/ml CK/CKMB % Calc Troponin I (0-0.045) ng/ml Total Protein (6.4-8.2) gm/dl Albumin (3.4-5.0) gm/dl Globulin (2.5-4.0) gm/dl Albumin/Globulin Ratio (0.9-2) TSH (0.300-4.500) uIu/ml Urine Color Urine Appearance (Clear) Urine pH (4.5-7.5) Ur Specific [place] (1.000-1.030) Urine Protein (Negative) Urine Glucose (UA) (Negative) Urine Ketones (Negative) Urine Blood (Negative) Urine Nitrite (Negative) Urine Bilirubin (Negative) Urine Urobilinogen (Negative) Ur Leukocyte Esterase (Negative) Urine WBC (Auto) (0-5) /hpf Urine RBC (Auto) (0-4) /hpf U Hyaline Cast (Auto) (0-5) /lpf U Epithel Cells (Auto) (0-5) /lpf Urine Bacteria (Auto) (Negative) Urine Osmolality (500-800) mOsm/kg Ur Random Sodium mmol/L 01/17/19 01/17/19 01/17/19 Range/Units 20:05 20:05 20:05 WBC (4.8-10.8) K/uL RBC (4.7-6.1) M/uL Hgb (14.0-18.0) g/dL Hct (42-52) % MCV (80-100) fL MCH (25-34) pg MCHC (32-36) g/dL RDW Std Deviation (36.4-46.3) fL RDW Coeff of Praveena (11.5-14.5) % Plt Count (130-400) K/uL MPV (7.4-10.4) fL Immature Gran % (Auto) % Neut % (Auto) % Lymph % (Auto) % Cros[place] % (Auto) % Eos % (Auto) % Baso % (Auto) % Immature Gran # (Auto) (0.00-0.02) K/uL Neut # (Auto) (1.4-6.5) K/uL Lymph # (Auto) (1.2-3.4) K/uL Crosby # (Auto) (0.11-0.59) K/uL Eos # (Auto) (0-0.5) K/uL Baso # (Auto) (0-0.2) K/uL PT (9.0-12.0) Seconds INR (0.9-1.1) APTT (21.0-31.0) Seconds PTT Ratio VBG pH (7.36-7.41) VBG pCO2 (38-50) mmHg VBG pO2 mmHg VBG HCO3 mmol/L VBG O2 Saturation % VBG Base Excess mEq/L Barometric Pressure mm/Hg Sodium (136-145) mmol/L Potassium (3.5-5.1) mmol/L Chloride (98-107) mmol/L Carbon Dioxide (21-32) mmol/L Anion Gap (3-11) BUN (7-18) mg/dl Creatinine (0.6-1.4) mg/dl Est Cr Clr Drug Dosing ml/min Est GFR ( Amer) Est GFR (Non-Af Amer) BUN/Creatinine Ratio (10-20) Glucose (70-99) mg/dl Osmolality (280-300) mOsm/kg Calcium (8.5-10.1) mg/dl Magnesium (1.8-2.4) mg/dl Total Bilirubin (0.2-1) mg/dl AST (15-37) U/L ALT (12-78) U/L Alkaline Phosphatase (45-117) U/L Ammonia (11-32) umol/L Total Creatine Kinase (39-308) U/L CK-MB (CK-2) (0.5-3.6) ng/ml CK/CKMB % Calc Troponin I (0-0.045) ng/ml Total Protein (6.4-8.2) gm/dl Albumin (3.4-5.0) gm/dl Globulin (2.5-4.0) gm/dl Albumin/Globulin Ratio (0.9-2) TSH (0.300-4.500) uIu/ml Urine Color Yellow Urine Appearance Clear (Clear) Urine pH 5.0 (4.5-7.5) Ur Specific [place] 1.027 (1.000-1.030) Urine Protein Trace H (Negative) Urine Glucose (UA) 3+ H (Negative) Urine Ketones 3+ H (Negative) Urine Blood Trace H (Negative) Urine Nitrite Negative (Negative) Urine Bilirubin Negative (Negative) Urine Urobilinogen Negative (Negative) Ur Leukocyte Esterase Negative (Negative) Urine WBC (Auto) 1-5 (0-5) /hpf Urine RBC (Auto) 0-4 (0-4) /hpf U Hyaline Cast (Auto) 1-5 (0-5) /lpf U Epithel Cells (Auto) 10-20 H (0-5) /lpf Urine Bacteria (Auto) Negative (Negative) Urine Osmolality 797 (500-800) mOsm/kg Ur Random Sodium 100 mmol/L 01/17/19 Range/Units 23:21 WBC (4.8-10.8) K/uL RBC (4.7-6.1) M/uL Hgb (14.0-18.0) g/dL Hct (42-52) % MCV (80-100) fL MCH (25-34) pg MCHC (32-36) g/dL RDW Std Deviation (36.4-46.3) fL RDW Coeff of Praveena (11.5-14.5) % Plt Count (130-400) K/uL MPV (7.4-10.4) fL Immature Gran % (Auto) % Neut % (Auto) % Lymph % (Auto) % [place] % (Auto) % Eos % (Auto) % Baso % (Auto) % Immature Gran # (Auto) (0.00-0.02) K/uL Neut # (Auto) (1.4-6.5) K/uL Lymph # (Auto) (1.2-3.4) K/uL [place] # (Auto) (0.11-0.59) K/uL Eos # (Auto) (0-0.5) K/uL Baso # (Auto) (0-0.2) K/uL PT (9.0-12.0) Seconds INR (0.9-1.1) APTT (21.0-31.0) Seconds PTT Ratio VBG pH (7.36-7.41) VBG pCO2 (38-50) mmHg VBG pO2 mmHg VBG HCO3 mmol/L VBG O2 Saturation % VBG Base Excess mEq/L Barometric Pressure mm/Hg Sodium 122 L (136-145) mmol/L Potassium 4.9 (3.5-5.1) mmol/L Chloride 89 L (98-107) mmol/L Carbon Dioxide 20 L (21-32) mmol/L Anion Gap 13.0 H (3-11) BUN 18 (7-18) mg/dl Creatinine 0.93 (0.6-1.4) mg/dl Est Cr Clr Drug Dosing 63.0 ml/min Est GFR ( Amer) 87.7 Est GFR (Non-Af Amer) 75.7 BUN/Creatinine Ratio 19.0 (10-20) Glucose 182 H (70-99) mg/dl Osmolality (280-300) mOsm/kg Calcium 8.1 L (8.5-10.1) mg/dl Magnesium (1.8-2.4) mg/dl Total Bilirubin (0.2-1) mg/dl AST (15-37) U/L ALT (12-78) U/L Alkaline Phosphatase (45-117) U/L Ammonia (11-32) umol/L Total Creatine Kinase (39-308) U/L CK-MB (CK-2) (0.5-3.6) ng/ml CK/CKMB % Calc Troponin I (0-0.045) ng/ml Total Protein (6.4-8.2) gm/dl Albumin (3.4-5.0) gm/dl Globulin (2.5-4.0) gm/dl Albumin/Globulin Ratio (0.9-2) TSH (0.300-4.500) uIu/ml Urine Color Urine Appearance (Clear) Urine pH (4.5-7.5) Ur Specific [place] (1.000-1.030) Urine Protein (Negative) Urine Glucose (UA) (Negative) Urine Ketones (Negative) Urine Blood (Negative) Urine Nitrite (Negative) Urine Bilirubin (Negative) Urine Urobilinogen (Negative) Ur Leukocyte Esterase (Negative) Urine WBC (Auto) (0-5) /hpf Urine RBC (Auto) (0-4) /hpf U Hyaline Cast (Auto) (0-5) /lpf U Epithel Cells (Auto) (0-5) /lpf Urine Bacteria (Auto) (Negative) Urine Osmolality (500-800) mOsm/kg Ur Random Sodium mmol/L Imaging Data Radiologist's Impression: Radiology results as stated below per my review and the radiologist's interpretation: CT OF THE HEAD WITHOUT CONTRAST CLINICAL HISTORY: Weakness. COMPARISON STUDY: No previous studies for comparison. CT DOSE: 614.27 mGy.cm TECHNIQUE: Helical axial images of the head were obtained without IV contrast. Automated exposure control was utilized for the study. A dose lowering technique was utilized adhering to the principles of ALARA. FINDINGS: No acute intracranial hemorrhage, midline shift or mass effect is present. Mild ventricular dilatation is due to atrophy. The basilar cisterns are patent. No extra-axial collections are present. There are no findings to suggest acute dural sinus thrombosis or acute territorial infarct. No significant calvarial abnormalities are present. Visualized portions of the sinuses and mastoid air cells are clear. White matter hypodensity suggests small vessel disease. IMPRESSION: No acute intracranial findings. Electronically signed by: Cristian Ramirez M.D. 01/17/2019 7:36 PM XR chest 1V portable CLINICAL HISTORY: weakness COMPARISON STUDY: No previous studies for comparison. FINDINGS: Lung volumes are normal. Lungs are clear. There is no pneumothorax or pleural effusion. Cardiac size is normal. Mediastinal contours are normal. There is no evidence for pulmonary edema. Minimal congenital right rib deformities are noted. Kyphotic positioning is noted. IMPRESSION: No acute cardiopulmonary findings. Electronically signed by: Cristian Ramirez M.D. 01/17/2019 7:39 PM KUB CLINICAL HISTORY: Abdominal pain. COMPARISON STUDY: None. FINDINGS: No dilated loops of bowel are identified. Pelvic calcifications favor phleboliths. No suspicious lesions are identified within visualized skeletal structures. Lung bases are clear. IMPRESSION: No evidence for a bowel obstruction. Electronically signed by: Cristian Ramirez M.D. 01/17/2019 7:40 PM XR soft tissue neck CLINICAL HISTORY: drooling COMPARISON STUDY: No previous studies for comparison. FINDINGS: Prevertebral soft tissues are unremarkable. Epiglottis is likely normal. The pharynx is distended. No fracture shown within visualized portions of the cervical spine. IMPRESSION: 1. No significant abnormality within the neck by radiography. 2. Mild pharyngeal distention. Electronically signed by: Cristian Ramirez M.D. 01/17/2019 7:[address] OF THE ABDOMEN AND PELVIS WITH CONTRAST CLINICAL HISTORY: unable to eat COMPARISON STUDY: KUB performed earlier today. TECHNIQUE: Patient was premedicated for IV dye allergy as per your protocol pre- Following IV administration of 117 mL of Optiray-320, axial images of the abdomen and pelvis were obtained from the lung bases to the proximal femurs. Images were reviewed in the axial, sagittal, and coronal planes. IV contrast was administered without complication. Automated exposure control was utilized for the study. A dose lowering technique was utilized adhering to the principles of ALARA. FINDINGS: No pneumatosis, free air or portal venous gas is present. The chest will be reported separately. The liver, spleen, adrenal glands and kidneys are unremarkable. Pancreatic glandular atrophy is noted. There is no biliary or muñoz creatic ductal dilatation. No hydronephrosis is present. There is no evidence for a bowel obstruction. Caliber and wall thickness of small and large bowel are normal. No lymphadenopathy is present. There is moderate plaque of the abdominal aorta. No aneurysmal dilatation is present. There is trace presacral infiltration. No suspicious osseous lesions are noted. Subcentimeter right renal lesion favors a cyst. IMPRESSION: 1. No acute process within the abdomen or pelvis. 2. No bowel obstruction. No bowel wall thickening. Electronically signed by: Cristian Ramirez M.D. 01/17/2019 9:[address] ANGIOGRAPHY OF THE CHEST, PULMONARY EMBOLUS PROTOCOL CLINICAL HISTORY: Shortness of breath. COMPARISON STUDY: Chest radiograph performed earlier today. TECHNIQUE: Patient was premedicated for IV dye allergy as per ED protocol. Following IV administration of 117 mL of Optiray-320, helical axial images of the chest were obtained utilizing the pulmonary embolus protocol. Maximal intensity projections and sagittal and coronal reformats were viewed on an independent 3D workstation. IV contrast was administered without complication. Automated exposure control was utilized for the study. A dose lowering technique was utilized adhering to the principles of ALARA. CT DOSE: 1116.72 mGy.cm FINDINGS: No pulmonary emboli are identified although the segmental and subsegmental pulmonary arteries within the lower lobes are suboptimally assessed due to respiratory motion. There is no thoracic aortic dissection. The heart is mildly enlarged. Extensive coronary artery calcification is present. Right lower lobe subpleural opacity favors atelectasis. There is no consolidation to suggest pneumonia. Central airways are patent. Old right chest wall deformity is noted. There are subacute nondisplaced bilateral fifth rib fractures. There is no pneumothorax or pleural effusion. Abdomen and pelvis will be reported separately. No suspicious osseous lesions are noted. There is no thoracic lymphadenopathy. IMPRESSION: 1. No pulmonary emboli identified although lower lobe segmental and subsegmental pulmonary arteries suboptimally assessed due to respiratory motion. 2. Right lower lobe opacity suggestive of atelectasis. 3. Mild cardiomegaly. Extensive coronary artery calcification. Electronically signed by: Cristian Ramirez M.D. 01/17/2019 9:25 PM ECG Data Attestation: I personally reviewed and interpreted this ECG as follows: Indication: altered mental status Rate (beats per minute): 87 Rhythm: sinus rhythm Findings: + ST depression; no ectopy Comparison ECG Date: from (10/10/18) Change: the following changes noted (all changes are new) Blood Pressure Blood Pressure Findings: Elevated blood pressure Blood Pressure Disposition: further management by hospitalist MOODY Narrative The patient is an 83-year-old male who presented to the emergency department by ambulance for continued weakness. The patient has had a decline over the last 2 to 3 months according to his significant other. He was seen at [facility] by a neurologist and the thinks that most of his problems stem from the diagnosis of ALS. The patient was noted to have an acute decline in his mental status as well as his strength over the last 2 to 3 days. His is noted that he is stopped been able to talk as well as take his outpatient medications. The patient was very listless and lethargic. He did not have any focal neurologic deficit but rather had global weakness. He is also appearing to have difficulty with swallowing and was drooling. He did not appear to be aspirating. I discussed the patient's laboratory and radiographic studies with him as well as his significant other. The patient was found to have very severe hyponatremia. He was treated with IV fluids in the emergency department. He also appears to have a very abnormal EKG. This does not appear to have a definite ischemic pattern but rather may be consistent with the electrolyte abnormality. Despite this CT the chest was also ordered to ensure there was no signs of pulmonary embolism. I discussed the patient's condition with the on-call [facility] hospitalist. Given the patient's current condition as well as his electrolyte abnormalities I do feel he may be better managed as an inpatient at this time. Impression & Plan Hyponatremia, AMS (altered mental status), Abnormal EKG, HTN (hypertension) Discharge Plan Visit Data *Final* Discharge Date/Time: 01/18/19 00:06 Chief Complaint: Altered Mental Status ED Provider: Cornel Bravo Discharge Problem: Hyponatremia, AMS (altered mental status), Abnormal EKG, HTN (hypertension) Patient Disposition: Admitted As Inpatient Discharge Instructions Interventions: ED Discharge Assessment Last Done: 01/18/19 00:06 Discharge Problem: AMS (altered mental status) Qualifiers: Altered mental status type: unspecified Qualified Code(s): R41.82 - Altered me ntal status, unspecified HTN (hypertension) Qualifiers: Hypertension type: unspecified Qualified Code(s): I10 - Essential (primary) hypertension The scribe's documentation has been prepared under my direction and personally reviewed by me in its entirety. I confirm that the note above accurately ref lects all work, treatment, procedures, and medical decision making performed by me.
--- NOTE | 2019-01-17 23:35 | History & Physical Report ---
Date of Service January 17, 2019 Assessment & Plan (1) AMS (altered mental status): Patient with newly diagnosed ALS, functional decline over the last three weeks. Acute hyponatremia with Kh=110 on arrival. Patient is non-verbal at this time, does not follow commands. He moans at times, blinks eyes to voice, withdraws from pain. ?AMS secondary to acute hyponatremia vs progression of ALS. He received 2L NSS in the ER. On clinical exam he appears to be fairly euvolemic. No laboratory evidence of dehydration (BUN, Cr, H/H at baseline, normal urine osm). No seizure. ?SIADH. Na improved to 122 after IVF. No sedating medications given. CT head WNL. TSH, Ammonia, VBG WNL. -Admit to PCU, telemetry monitoring -Fluid restriction 1500mL, concern for SIADH -BMP q 4 hours -Frequent orientation -Palliative care consultation Present on Admission?: Yes (2) Hyponatremia: Nq=784. Has been slightly low in the past - 133 on 10/07/18 and 129 on 10/01/18. Patient appears to be euvolemic. 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 -Fluid restriction -BMP q 4 hours, careful correction Present on Admission?: Yes (3) ALS (amyotrophic lateral sclerosis): Patient with ALS diagnosed in September. He follows with the multidisciplinary clinic at [facility]. His disease appears to be rapidly progressive. His is aware that ALS is a progressive disease and she has been educated on what to expect with symptoms. Because of fairly rapid progression of disease they have yet to establish home services and support. I discussed with patient's that his decreased sodium may be contributing heavily to his current state. Possibly secondary to disease progression, end- stage ALS. Patient did voice that he does not want a PEG tube, ventilation or other heroic efforts. is in agreement. -Symptomatic management. Suction. May need Atropine/Scopolamine for secretion management if copious amounts -Palliative care consultation appreciated. \ Present on Admission?: Yes (4) CAD (coronary artery disease): He has a history of coronary artery disease with exertional dyspnea. Underwent catheterization at [facility] on 03/28/2018, with premedication to avoid dye induced anaphylaxis. Had EN placed in the LAD, via left radial artery. Echocardiogram 07/2018 revealed normal LV function. Muca-gn-[id number] MR with elevated pulmonary artery pressure in the 50-60 range. denies recent complaint of CP, palpitations or SOB. Troponin=0.031 --> 0.06. EKG with new TWI and ST depressions present in anterior leads V3-V6. Patient has been unable to take his medication for the last day at least -Heparin gtt -Trend troponin -Echocardiogram in AM -Cardiology consultation in AM - Patient is known to [facility] Cardiology -Continue ASA, Plavix, Atorvastatin and Metoprolol. Present on Admission?: Yes (5) Abnormal EKG: Plan as above. Present on Admission?: Yes (6) HTN (hypertension): Blood pressure within normal range at present -Continue Metoprolol -Continue to monitor Present on Admission?: Yes (7) Diabetes: Blood sugar presently 183 -Hold oral agents, Metformin and Glimepiride -ISS -Continue to monitor Present on Admission?: Yes (8) Hypothyroid: Chronic. TSH WNL -Continue Synthroid F/E/N - Fluid restriction as above. Monitor electrolytes and replete as needed. NPO for now until mental status improves. Ppx - Heparin gtt as above. Continue Protonix and Ranitidine Code - DNR/DNI Dispo - Admit to PCU Present on Admission?: Yes History of Present Illness Chief Complaint: functional decline Primary Care Provider: Kulwinder Jaramillo MD Giovani De Los Santos is an unfortunate 83yo C male with history of newly diagnosed ALS (October 2018), HTN, DM and CAD s/p multiple stents presenting with functional decline. Patient's and niece are at the bedside and provide the history as patient is non-verbal and not following commands. Patient follows with the Multidisciplinary ALS clinic at [facility], c/o Dr. Ness. Last note from October which mentions significant decline in finger dexterity and ambulation and weight loss. Per , patient has been steadily declining over the last 3 weeks. She reports that he was able to walk three weeks ago. Since then he has had progressive difficulty with ambulation, now unable to walk or even pull himself up in bed. He has also had progressive decline in speech over the same time frame - this AM he was only moaning answers, not following commands. She noted an increase in oral saliva this week with difficulty managing secretions. He has been having some nausea with meals as well as difficulty swallowing over the last 2 days. His has been feeding him over the last two weeks and reports he has only been eating small bites of food for the last few days. states that he was most altered this afternoon and was looking at her but not responsive. All symptoms have become acutely worse over the last 48 hours. This afternoon the patient was seen by his home health aide and she expressed that he should be placed on hospice care. Patient is unable to answer questions or follow commands. denies presence of fevers/chills/vomiting/diarrhea/constipation. She states he has not been complaining of chest pain, palpitations, SOB or cough. No seizure activity. No falls. No medications were taken today. Per discussion with , patient wishes to be DNR/DNI with no heroic measures. He does not wish to have a feeding tube placed or be ventilated. She is acutely aware that ALS is a progressive disease and is aware of symptoms that may arise. She is rather surprised at the rate of progression, that her is so debilitated after only being diagnosed 2 months ago. ER Course: Pepcid, Solumedrol, NSS x 2 L Allergies Allergy/AdvReac Type Severity Reaction Status Date / Time Iodine and Iodide Containing Allergy Severe Anaphylaxis Verified 01/17/19 19:12 Produc shellfish derived Allergy Anaphylaxis Verified 01/17/19 19:12 Home Medications Home Medications Medication Instructions Recorded Confirmed Type aspirin [Aspir-81] 81 mg PO HS 01/17/19 01/17/19 History atorvastatin 40 mg PO HS 01/17/19 01/17/19 History clopidogrel [Plavix] 75 mg PO DAILY 01/17/19 01/17/19 History glimepiride 2 mg PO QAM 01/17/19 01/17/19 History levothyroxine 25 mcg PO HS 01/17/19 01/17/19 History metformin 1,000 mg PO BID 01/17/19 01/17/19 History metoprolol succinate 50 mg PO DAILY 01/17/19 01/17/19 History multivitamin 1 tab PO DAILY 01/17/19 01/17/19 History nitroglycerin 0.4 mg SUBLINGUAL UD PRN 01/17/19 01/17/19 History pantoprazole 40 mg PO DAILY 01/17/19 01/17/19 History polyethylene glycol 3350 [Miralax] 17 g PO DAILY 01/17/19 01/17/19 History ranitidine HCl 150 mg PO HS 01/17/19 01/17/19 History Past Med/Surg History Medical History ALS (amyotrophic lateral sclerosis) diagnosed October 2018 at [place] CAD (coronary artery disease) Diabetes History of cataract Hypertension Hypothyroid Surgical History History of heart artery stent History of vasectomy Family History Other Diabetes Hypertension Social History Preferred Language: Montserratian Communication Ability: Impaired Communication Ability Comment: Limited ability to respond. Computer Assembler Required: No Beliefs That Will Affect Care: None Current Living Situation: Spouse Other Information That Helps Us Care for You: No Feels Safe at Home: Yes Safety Concerns: Feels Safe At This Time Smoking Status: Former smoker Hx Alcohol Use: No Hx Substance Use: No Review of Systems Review of Systems: Unobtainable due to cognitive status see HPI - questions answered by Physical Exam Physical Exam: General: patient obtunded, blinks eyes to verbal stimuli, withdraws from noxious stimuli x 4 Skin: warm, dry, intact, no rashes or lesions HEENT: NC/AT, pupils small, reactive, anicteric sclera, conjunctiva without injection, external ear normal to inspection and nontender, nares patent, moist mucus membranes with excess drooling present, dentures in place, no oropharyng eal lesions, neck supple, trachea midline, no LAD, no thyromegaly, no JVD Heart: +S1/S2, regular with ectopy, no m/r/g Lungs: equal air entry bilaterally, no rales/rhonchi/wheezes anteriorly Abd: +BS, soft, NT/ND, no masses/organomegaly/ascites Ext: warm, 2+ pulses in UE/LE bilaterally, no clubbing/cyanosis or edema Neuro: obtunded, withdraws from painful stimuli, does not follow commands Results & Data Vital Signs (Past 12 Hours) Vital Signs Temp Pulse Pulse Resp BP BP Pulse Ox 01/17/19 23:24 80 18 138/66 95 01/17/19 21:20 88 18 189/72 H 96 01/17/19 19:04 85 20 167/88 H 95 01/17/19 18:25 37.0 C 86 20 167/88 H 96 Laboratory Results Lab Results 01/17/19 01/17/19 01/17/19 Range/Units 18:46 18:46 18:46 WBC 15.94 H (4.8-10.8) K/uL RBC 4.49 L (4.7-6.1) M/uL Hgb 14.2 (14.0-18.0) g/dL Hct 39.1 L (42-52) % MCV 87.1 (80-100) fL MCH 31.6 (25-34) pg MCHC 36.3 H (32-36) g/dL RDW Std Deviation 40.4 (36.4-46.3) fL RDW Coeff of Praveena 12.6 (11.5-14.5) % Plt Count 293 (130-400) K/uL MPV 10.3 (7.4-10.4) fL Immature Gran % (Auto) 0.6 % Neut % (Auto) 79.0 % Lymph % (Auto) 9.7 % [place] % (Auto) 10.0 % Eos % (Auto) 0.5 % Baso % (Auto) 0.2 % Immature Gran # (Auto) 0.09 H (0.00-0.02) K/uL Neut # (Auto) 12.60 H (1.4-6.5) K/uL Lymph # (Auto) 1.54 (1.2-3.4) K/uL [place] # (Auto) 1.60 H (0.11-0.59) K/uL Eos # (Auto) 0.08 (0-0.5) K/uL Baso # (Auto) 0.03 (0-0.2) K/uL PT 10.9 (9.0-12.0) Seconds INR 1.1 (0.9-1.1) APTT 28.9 (21.0-31.0) Seconds PTT Ratio 1.1 VBG pH (7.36-7.41) VBG pCO2 (38-50) mmHg VBG pO2 mmHg VBG HCO3 mmol/L VBG O2 Saturation % VBG Base Excess mEq/L Barometric Pressure mm/Hg Sodium 119 L* (136-145) mmol/L Potassium 4.6 (3.5-5.1) mmol/L Chloride 86 L (98-107) mmol/L Carbon Dioxide 21 (21-32) mmol/L Anion Gap 12.0 H (3-11) BUN 17 (7-18) mg/dl Creatinine 1.09 (0.6-1.4) mg/dl Est Cr Clr Drug Dosing 53.7 ml/min Est GFR ( Amer) 72.4 Est GFR (Non-Af Amer) 62.4 BUN/Creatinine Ratio 15.9 (10-20) Glucose 183 H (70-99) mg/dl Osmolality (280-300) mOsm/kg Calcium 9.0 (8.5-10.1) mg/dl Magnesium 1.8 (1.8-2.4) mg/dl Total Bilirubin 0.8 (0.2-1) mg/dl AST 31 (15-37) U/L ALT 29 (12-78) U/L Alkaline Phosphatase 109 (45-117) U/L Ammonia (11-32) umol/L Total Creatine Kinase 173 (39-308) U/L CK-MB (CK-2) 5.1 H (0.5-3.6) ng/ml CK/CKMB % Calc Not Reportable Troponin I 0.031 (0-0.045) ng/ml Total Protein 8.1 (6.4-8.2) gm/dl Albumin 3.6 (3.4-5.0) gm/dl Globulin 4.5 H (2.5-4.0) gm/dl Albumin/Globulin Ratio 0.8 L (0.9-2) TSH 3.030 (0.300-4.500) uIu/ml Urine Color Urine Appearance (Clear) Urine pH (4.5-7.5) Ur Specific [place] (1.000-1.030) Urine Protein (Negative) Urine Glucose (UA) (Negative) Urine Ketones (Negative) Urine Blood (Negative) Urine Nitrite (Negative) Urine Bilirubin (Negative) Urine Urobilinogen (Negative) Ur Leukocyte Esterase (Negative) Urine WBC (Auto) (0-5) /hpf Urine RBC (Auto) (0-4) /hpf U Hyaline Cast (Auto) (0-5) /lpf U Epithel Cells (Auto) (0-5) /lpf Urine Bacteria (Auto) (Negative) Urine Osmolality (500-800) mOsm/kg Ur Random Sodium mmol/L 01/17/19 01/17/19 01/17/19 Range/Units 18:46 18:46 18:47 WBC (4.8-10.8) K/uL RBC (4.7-6.1) M/uL Hgb (14.0-18.0) g/dL Hct (42-52) % MCV (80-100) fL MCH (25-34) pg MCHC (32-36) g/dL RDW Std Deviation (36.4-46.3) fL RDW Coeff of Praveena (11.5-14.5) % Plt Count (130-400) K/uL MPV (7.4-10.4) fL Immature Gran % (Auto) % Neut % (Auto) % Lymph % (Auto) % [place] % (Auto) % Eos % (Auto) % Baso % (Auto) % Immature Gran # (Auto) (0.00-0.02) K/uL Neut # (Auto) (1.4-6.5) K/uL Lymph # (Auto) (1.2-3.4) K/uL [place] # (Auto) (0.11-0.59) K/uL Eos # (Auto) (0-0.5) K/uL Baso # (Auto) (0-0.2) K/uL PT (9.0-12.0) Seconds INR (0.9-1.1) APTT (21.0-31.0) Seconds PTT Ratio VBG pH 7.37 (7.36-7.41) VBG pCO2 39 (38-50) mmHg VBG pO2 22 mmHg VBG HCO3 22 mmol/L VBG O2 Saturation < 60.0 % VBG Base Excess -3.0 mEq/L Barometric Pressure 734.9 mm/Hg Sodium (136-145) mmol/L Potassium (3.5-5.1) mmol/L Chloride (98-107) mmol/L Carbon Dioxide (21-32) mmol/L Anion Gap (3-11) BUN (7-18) mg/dl Creatinine (0.6-1.4) mg/dl Est Cr Clr Drug Dosing ml/min Est GFR ( Amer) Est GFR (Non-Af Amer) BUN/Creatinine Ratio (10-20) Glucose (70-99) mg/dl Osmolality 263 L (280-300) mOsm/kg Calcium (8.5-10.1) mg/dl Magnesium (1.8-2.4) mg/dl Total Bilirubin (0.2-1) mg/dl AST (15-37) U/L ALT (12-78) U/L Alkaline Phosphatase (45-117) U/L Ammonia 15.0 (11-32) umol/L Total Creatine Kinase (39-308) U/L CK-MB (CK-2) (0.5-3.6) ng/ml CK/CKMB % Calc Troponin I (0-0.045) ng/ml Total Protein (6.4-8.2) gm/dl Albumin (3.4-5.0) gm/dl Globulin (2.5-4.0) gm/dl Albumin/Globulin Ratio (0.9-2) TSH (0.300-4.500) uIu/ml Urine Color Urine Appearance (Clear) Urine pH (4.5-7.5) Ur Specific [place] (1.000-1.030) Urine Protein (Negative) Urine Glucose (UA) (Negative) Urine Ketones (Negative) Urine Blood (Negative) Urine Nitrite (Negative) Urine Bilirubin (Negative) Urine Urobilinogen (Negative) Ur Leukocyte Esterase (Negative) Urine WBC (Auto) (0-5) /hpf Urine RBC (Auto) (0-4) /hpf U Hyaline Cast (Auto) (0-5) /lpf U Epithel Cells (Auto) (0-5) /lpf Urine Bacteria (Auto) (Negative) Urine Osmolality (500-800) mOsm/kg Ur Random Sodium mmol/L 01/17/19 01/17/19 01/17/19 Range/Units 20:05 20:05 20:05 WBC (4.8-10.8) K/uL RBC (4.7-6.1) M/uL Hgb (14.0-18.0) g/dL Hct (42-52) % MCV (80-100) fL MCH (25-34) pg MCHC (32-36) g/dL RDW Std Deviation (36.4-46.3) fL RDW Coeff of Praveena (11.5-14.5) % Plt Count (130-400) K/uL MPV (7.4-10.4) fL Immature Gran % (Auto) % Neut % (Auto) % Lymph % (Auto) % [place] % (Auto) % Eos % (Auto) % Baso % (Auto) % Immature Gran # (Auto) (0.00-0.02) K/uL Neut # (Auto) (1.4-6.5) K/uL Lymph # (Auto) (1.2-3.4) K/uL [place] # (Auto) (0.11-0.59) K/uL Eos # (Auto) (0-0.5) K/uL Baso # (Auto) (0-0.2) K/uL PT (9.0-12.0) Seconds INR (0.9-1.1) APTT (21.0-31.0) Seconds PTT Ratio VBG pH (7.36-7.41) VBG pCO2 (38-50) mmHg VBG pO2 mmHg VBG HCO3 mmol/L VBG O2 Saturation % VBG Base Excess mEq/L Barometric Pressure mm/Hg Sodium (136-145) mmol/L Potassium (3.5-5.1) mmol/L Chloride (98-107) mmol/L Carbon Dioxide (21-32) mmol/L Anion Gap (3-11) BUN (7-18) mg/dl Creatinine (0.6-1.4) mg/dl Est Cr Clr Drug Dosing ml/min Est GFR ( Amer) Est GFR (Non-Af Amer) BUN/Creatinine Ratio (10-20) Glucose (70-99) mg/dl Osmolality (280-300) mOsm/kg Calcium (8.5-10.1) mg/dl Magnesium (1.8-2.4) mg/dl Total Bilirubin (0.2-1) mg/dl AST (15-37) U/L ALT (12-78) U/L Alkaline Phosphatase (45-117) U/L Ammonia (11-32) umol/L Total Creatine Kinase (39-308) U/L CK-MB (CK-2) (0.5-3.6) ng/ml CK/CKMB % Calc Troponin I (0-0.045) ng/ml Total Protein (6.4-8.2) gm/dl Albumin (3.4-5.0) gm/dl Globulin (2.5-4.0) gm/dl Albumin/Globulin Ratio (0.9-2) TSH (0.300-4.500) uIu/ml Urine Color Yellow Urine Appearance Clear (Clear) Urine pH 5.0 (4.5-7.5) Ur Specific [place] 1.027 (1.000-1.030) Urine Protein Trace H (Negative) Urine Glucose (UA) 3+ H (Negative) Urine Ketones 3+ H (Negative) Urine Blood Trace H (Negative) Urine Nitrite Negative (Negative) Urine Bilirubin Negative (Negative) Urine Urobilinogen Negative (Negative) Ur Leukocyte Esterase Negative (Negative) Urine WBC (Auto) 1-5 (0-5) /hpf Urine RBC (Auto) 0-4 (0-4) /hpf U Hyaline Cast (Auto) 1-5 (0-5) /lpf U Epithel Cells (Auto) 10-20 H (0-5) /lpf Urine Bacteria (Auto) Negative (Negative) Urine Osmolality 797 (500-800) mOsm/kg Ur Random Sodium 100 mmol/L 01/17/19 Range/Units 23:21 WBC (4.8-10.8) K/uL RBC (4.7-6.1) M/uL Hgb (14.0-18.0) g/dL Hct (42-52) % MCV (80-100) fL MCH (25-34) pg MCHC (32-36) g/dL RDW Std Deviation (36.4-46.3) fL RDW Coeff of Praveena (11.5-14.5) % Plt Count (130-400) K/uL MPV (7.4-10.4) fL Immature Gran % (Auto) % Neut % (Auto) % Lymph % (Auto) % [place] % (Auto) % Eos % (Auto) % Baso % (Auto) % Immature Gran # (Auto) (0.00-0.02) K/uL Neut # (Auto) (1.4-6.5) K/uL Lymph # (Auto) (1.2-3.4) K/uL [place] # (Auto) (0.11-0.59) K/uL Eos # (Auto) (0-0.5) K/uL Baso # (Auto) (0-0.2) K/uL PT (9.0-12.0) Seconds INR (0.9-1.1) APTT (21.0-31.0) Seconds PTT Ratio VBG pH (7.36-7.41) VBG pCO2 (38-50) mmHg VBG pO2 mmHg VBG HCO3 mmol/L VBG O2 Saturation % VBG Base Excess mEq/L Barometric Pressure mm/Hg Sodium 122 L (136-145) mmol/L Potassium 4.9 (3.5-5.1) mmol/L Chloride 89 L (98-107) mmol/L Carbon Dioxide 20 L (21-32) mmol/L Anion Gap 13.0 H (3-11) BUN 18 (7-18) mg/dl Creatinine 0.93 (0.6-1.4) mg/dl Est Cr Clr Drug Dosing 63.0 ml/min Est GFR ( Amer) 87.7 Est GFR (Non-Af Amer) 75.7 BUN/Creatinine Ratio 19.0 (10-20) Glucose 182 H (70-99) mg/dl Osmolality (280-300) mOsm/kg Calcium 8.1 L (8.5-10.1) mg/dl Magnesium (1.8-2.4) mg/dl Total Bilirubin (0.2-1) mg/dl AST (15-37) U/L ALT (12-78) U/L Alkaline Phosphatase (45-117) U/L Ammonia (11-32) umol/L Total Creatine Kinase (39-308) U/L CK-MB (CK-2) (0.5-3.6) ng/ml CK/CKMB % Calc Troponin I (0-0.045) ng/ml Total Protein (6.4-8.2) gm/dl Albumin (3.4-5.0) gm/dl Globulin (2.5-4.0) gm/dl Albumin/Globulin Ratio (0.9-2) TSH (0.300-4.500) uIu/ml Urine Color Urine Appearance (Clear) Urine pH (4.5-7.5) Ur Specific [place] (1.000-1.030) Urine Protein (Negative) Urine Glucose (UA) (Negative) Urine Ketones (Negative) Urine Blood (Negative) Urine Nitrite (Negative) Urine Bilirubin (Negative) Urine Urobilinogen (Negative) Ur Leukocyte Esterase (Negative) Urine WBC (Auto) (0-5) /hpf Urine RBC (Auto) (0-4) /hpf U Hyaline Cast (Auto) (0-5) /lpf U Epithel Cells (Auto) (0-5) /lpf Urine Bacteria (Auto) (Negative) Urine Osmolality (500-800) mOsm/kg Ur Random Sodium mmol/L Diagnostic Findings XR chest 1V portable CLINICAL HISTORY: weakness COMPARISON STUDY: No previous studies for comparison. FINDINGS: Lung volumes are normal. Lungs are clear. There is no pneumothorax or pleural effusion. Cardiac size is normal. Mediastinal contours are normal. There is no evidence for pulmonary edema. Minimal congenital right rib deformities are noted. Kyphotic positioning is noted. IMPRESSION: No acute cardiopulmonary findings. Electronically signed by: Cristian Ramirez M.D. 01/17/2019 7:39 PM Dictated: 01/17/191938 Transcribed: 01/17/191938 CT OF THE HEAD WITHOUT CONTRAST CLINICAL HISTORY: Weakness. COMPARISON STUDY: No previous studies for comparison. CT DOSE: 614.27 mGy.cm TECHNIQUE: Helical axial images of the head were obtained without IV contrast. Automated exposure control was utilized for the study. A dose lowering technique was utilized adhering to the principles of ALARA. FINDINGS: No acute intracranial hemorrhage, midline shift or mass effect is present. Mild ventricular dilatation is due to atrophy. The basilar cisterns are patent. No extra-axial collections are present. There are no findings to suggest acute dural sinus thrombosis or acute territorial infarct. No significant calvarial abnormalities are present. Visualized portions of the sinuses and mastoid air cells are clear. White matter hypodensity suggests small vessel disease. IMPRESSION: No acute intracranial findings. Electronically signed by: Cristian Ramirez M.D. 01/17/2019 7:36 PM Dictated: 01/17/191934 Transcribed: 01/17/191934 KUB CLINICAL HISTORY: Abdominal pain. COMPARISON STUDY: None. FINDINGS: No dilated loops of bowel are identified. Pelvic calcifications favor phleboliths. No suspicious lesions are identified within visualized skeletal structures. Lung bases are clear. IMPRESSION: No evidence for a bowel obstruction. Electronically signed by: Cristian Ramirez M.D. 01/17/2019 7:40 PM Dictated: 01/17/191938 Transcribed: 01/17/191938 XR soft tissue neck CLINICAL HISTORY: drooling COMPARISON STUDY: No previous studies for comparison. FINDINGS: Prevertebral soft tissues are unremarkable. Epiglottis is likely normal. The pharynx is distended. No fracture shown within visualized portions of the cervical spine. IMPRESSION: 1. No significant abnormality within the neck by radiography. 2. Mild pharyngeal distention. Electronically signed by: Cristian Ramirez M.D. 01/17/2019 7:39 PM Dictated: 01/17/191936 Transcribed: 01/17/191936 ___ CT OF THE ABDOMEN AND PELVIS WITH CONTRAST CLINICAL HISTORY: unable to eat COMPARISON STUDY: KUB performed earlier today. TECHNIQUE: Patient was premedicated for IV dye allergy as per your protocol pre- Following IV administration of 117 mL of Optiray-320, axial images of the abdomen and pelvis were obtained from the lung bases to the proximal femurs. Images were reviewed in the axial, sagittal, and coronal planes. IV contrast was administered without complication. Automated exposure control was utilized for the study. A dose lowering technique was utilized adhering to the principles of ALARA. FINDINGS: No pneumatosis, free air or portal venous gas is present. The chest will be reported separately. The liver, spleen, adrenal glands and kidneys are unremarkable. Pancreatic glandular atrophy is noted. There is no biliary or pancreatic ductal dilatation. No hydronephrosis is present. There is no evidence for a bowel obstruction. Caliber and wall thickness of small and large bowel are normal. No lymphadenopathy is present. There is moderate plaque of the abdominal aorta. No aneurysmal dilatation is present. There is trace presacral infiltration. No suspicious osseous lesions are noted. Subcentimeter right renal lesion favors a cyst. IMPRESSION: 1. No acute process within the abdomen or pelvis. 2. No bowel obstruction. No bowel wall thickening. Electronically signed by: Cristian Ramirez M.D. 01/17/2019 9:34 PM Dictated: 01/17/192127 Transcribed: 01/17/192127 CT ANGIOGRAPHY OF THE CHEST, PULMONARY EMBOLUS PROTOCOL CLINICAL HISTORY: Shortness of breath. COMPARISON STUDY: Chest radiograph performed earlier today. TECHNIQUE: Patient was premedicated for IV dye allergy as per ED protocol. Following IV administration of 117 mL of Optiray-320, helical axial images of the chest were obtained utilizing the pulmonary embolus protocol. Maximal intensity projections and sagittal and coronal reformats were viewed on an independent 3D workstation. IV contrast was administered without complication. Automated exposure control was utilized for the study. A dose lowering technique was utilized adhering to the principles of ALARA. CT DOSE: 1116.72 mGy.cm FINDINGS: No pulmonary emboli are identified although the segmental and subsegmental pulmonary arteries within the lower lobes are suboptimally assessed due to respiratory motion. There is no thoracic aortic dissection. The heart is mildly enlarged. Extensive coronary artery calcification is present. Right lower lobe subpleural opacity favors atelectasis. There is no consolidation to suggest pneumonia. Central airways are patent. Old right chest wall deformity is noted. There are subacute nondisplaced bilateral fifth rib fractures. There is no pneumothorax or pleural effusion. Abdomen and pelvis will be reported separately. No suspicious osseous lesions are noted. There is no thoracic lymphadenopathy. IMPRESSION: 1. No pulmonary emboli identified although lower lobe segmental and subsegmental pulmonary arteries suboptimally assessed due to respiratory motion. 2. Right lower lobe opacity suggestive of atelectasis. 3. Mild cardiomegaly. Extensive coronary artery calcification. Electronically signed by: Cristian Ramirez M.D. 01/17/2019 9:25 PM Dictated: 01/17/197 Code Status & VTE Plan Code Status DNR VTE Prophylaxis Plan VTE Prophylaxis will be ordered: No PG Care Time/CCT Total # of Minutes Spent Total Time Spent with Patient: Total time spent is greater than 50% in coordination of care (as documented) at patient's floor/unit and/or counseling patient: (1) Diabetes Diabetes mellitus type: type 2 Diabetes mellitus fci insulin use: without fci use Diabetes mellitus complication status: without complication Qualified Code(s): E11.9 - Type 2 diabetes mellitus without complications (2) CAD (coronary artery disease) Coronary Disease-Associated Artery/Lesion type: [place] artery [place] vs. transplanted heart: [place] heart Associated angina: angina presence unspecified Qualified Code(s): I25.10 - Atherosclerotic heart disease of [place] coronary artery without angina pectoris (3) Hypothyroid Hypothyroidism type: unspecified Qualified Code(s): E03.9 - Hypothyroidism, unspecified (4) AMS (altered mental status) Altered mental status type: unspecified Qualified Code(s): R41.82 - Altered mental status, unspecified (5) HTN (hypertension) Hypertension type: unspecified Qualified Code(s): I10 - Essential (primary) hypertension
[2019-01-17 23:48] LABS: Calcium 8.1 mg/dl (8.5-10.1); Est GFR (African American) 87.7; Est GFR (Non-African American) 75.7; Potassium 4.9 mmol/L (3.5-5.1)
[2019-01-18] MEDS ORDERED: GLUCOSE 10 TABS/TUBE PO PRN (00:20)
[2019-01-18] MEDS ORDERED: CARBOHYDRATES FOR HYPOGLYCEMIA PO PRN (00:20)
[2019-01-18] MEDS ORDERED: GLUCOSE 40% GEL 15 GM TUBE PO PRN (00:20)
[2019-01-18] MEDS ORDERED: DEXTROSE 50% 50 ML SYRINGE IV PRN (00:20)
[2019-01-18] MEDS ORDERED: GLUCAGON FOR INJ 1 MG VIAL SQ PRN (00:20)
[2019-01-18 01:29] LABS: Magnesium 1.8 mg/dl (1.8-2.4); Phosphorus 3.9 mg/dl (2.5-4.9); Troponin I 0.06 ng/ml (0-0.045)
[2019-01-18] MEDS ORDERED: Heparin IV Standard *NO* Bolus IV ONE (01:44)
[2019-01-18 03:14] LABS: Basophils # (auto) 0.01 K/uL (0-0.2); Basophils % (auto) 0.1 %; Eosinophils # (auto) 0.01 K/uL (0-0.5); Eosinophils % (auto) 0.1 %; Hematocrit (blood only) 34.3 % (42-52); Hemoglobin 12.7 g/dL (14.0-18.0); Immature Granulocytes # (auto) 0.05 K/uL (0.00-0.02); Immature Granulocytes % (auto) 0.4 %; Lymphocytes % (auto) 4.4 %; Mean Corpuscular Hemoglobin 31.9 pg (25-34); Mean Corpuscular Volume 86.2 fL (80-100); Mean Platelet Volume 9.8 fL (7.4-10.4); Monocytes # (auto) 0.29 K/uL (0.11-0.59); Monocytes % (auto) 2.6 %; Neutrophils # (auto) 10.44 K/uL (1.4-6.5); Neutrophils % (auto) 92.4 %; Platelet Count 276 K/uL (130-400); RDW Coefficient of Variation 12.5 % (11.5-14.5); RDW Standard Deviation 39.8 fL (36.4-46.3); Red Blood Count 3.98 M/uL (4.7-6.1)
[2019-01-18 03:24] LABS: INR 1.1 (0.9-1.1); Partial Thromboplastin Ratio 1.1; Partial Thromboplastin Time 29.5 Seconds (21.0-31.0); Prothrombin Time 11.4 Seconds (9.0-12.0)
[2019-01-18 03:30] LABS: BUN Creatinine Ratio 20.4 (10-20); Calcium 8.2 mg/dl (8.5-10.1); Creatinine Clr Calc Pharmacy 56.1 ml/min; Est GFR (African American) 82.3; Potassium 4.8 mmol/L (3.5-5.1)
[2019-01-18] MEDS: HEPARIN SODIUM/DEXTROSE 25,000 UNITS/500 ML BAG IV SCH (03:55)
[2019-01-18] MEDS: INSULIN ASPART 100 UNITS/ML 3 ML PEN SC SCH ×3 (05:53→17:24)
[2019-01-18] MEDS ORDERED: CLOPIDOGREL BISULFATE 75 MG TAB PO SCH (09:00)
[2019-01-18] MEDS ORDERED: METOPROLOL SUCC 50MG EXT REL TAB PO SCH (09:00)
[2019-01-18] MEDS ORDERED: PANTOprazole 40 MG TAB PO SCH (09:00)
[2019-01-18 09:14] LABS: BUN Creatinine Ratio 19.4 (10-20); Calcium 8.5 mg/dl (8.5-10.1); Creatinine Clr Calc Pharmacy 55.6 ml/min; Est GFR (African American) 81.3; Est GFR (Non-African American) 70.1
[2019-01-18 09:17] LABS: Troponin I 0.039 ng/ml (0-0.045)
[2019-01-18] MEDS: INSULIN GLARGINE SOLOSTAR 100 UNITS/ML 3 ML PEN SQ SCH ×2 (09:27→21:50)
[2019-01-18] MEDS ORDERED: METOPROLOL TARTRATE 1 MG/ML VIAL IV PRN (10:41)
[2019-01-18] MEDS ORDERED: SCOPOLAMINE 1.5 MG TDSY TD ONE (11:15)
[2019-01-18 11:52] LABS: Partial Thromboplastin Ratio 4.7
[2019-01-18 11:59] LABS: Partial Thromboplastin Time 126.6 Seconds (21.0-31.0)
[2019-01-18] MEDS: ATROPINE SULFATE 1% OP SOLN 2 ML BTL SL PRN (12:26)
--- NOTE | 2019-01-18 13:26 | Family Medicine Progress Note ---
Date of Service January 18, 2019 Assessment & Plan (1) Hyponatremia: Patient is a 61 year old male with PMHx ALS, CAD s/p stent Mar 2018, Hypothyroidism, HTN, that presented by EMS with altered mental status and found to be hyponatremic at 119 upon presentation. Hyponatremia -Na 119 upon presentation -?SIADH vs Poor PO Intake vs Hypovolemic Hyponatremia -Pt given 2L NSS in ED, improved Na 122 -Pt continues to appear fairly Euvolemic on exam -Free water restriction at 1500 mL, NPO until after Speech Therapy -NSS 125mL/hr while patient remains NPO Altered Mental Status -Appears greatly improved. - notes that patient is back to baseline ALS -Rapid progression since diagnosis 2 months ago. -Chronic, stable Abnormal EKG with elevated Troponin with known hx CAD s/p stent LAD 2018, and x2 in 2003 -EKG showed T wave inversions and ST depression of V3-V6 -Troponin on admission 0.031, trended at 8 hours to 0.06 to 0.039. -Patient denies any chest pain, chest pressure, or chest discomfort. -Cardiology consult -Holding ASA, clopidogrel, atorvastatin since patient unable to tolerate PO -Heparin gtt protocol -Echocardiogram EF>70% without regional wall abnormalities. At risk for Aspiration -Current PO medications on hold until patient able to tolerate PO, converted to IV -Speech eval ordered -Scopolamine patch and Atropine PRN for secretions DM -Holding PO Glimepiride and Metformin -ISS while inpatient Hypothyroidism -Levothyroxine 12.5mg IV -Holding PO levothyroxine GERD -Holding PO Pantoprazole and Zantac -Zantac 50mg IV Q8H HTN -Hold PO Metoprolol Succinate -Metoprolol 2.5mg IV BID, will titrate up as needed. FEN/GI - NPO until speech eval, NSS 125 ml/hr DVT - Hep gtt Code - DNR/DNI Dispo - PCU (2) AMS (altered mental status): (3) ALS (amyotrophic lateral sclerosis): (4) HTN (hypertension): (5) CAD (coronary artery disease): (6) Abnormal EKG: (7) Diabetes: (8) Hypothyroid: (9) At risk for aspiration: (10) GERD (gastroesophageal reflux disease): Supervising Physician Co-Signing Physician Notes Resident Physician Supervision Note: I independently interviewed and examined the patient and verified the okeefe history and physical, reviewed labs and image studies, discussed the case with the resident Dr. Espino and agree with the findings and care plan. Subjective Patient seen and examined at the bedside this AM. Patient initially appeared slightly uncomfortable with head tilted backwards, noted improvement upon placement of second pillow that allowed his head to come forward. Patient is noted to have a diagnosis of ALS which he acknowledges was given to him 2 months ago and has progressed rapidly. He notes that his has a better account of his medical history, however, she is currently not present in the room. He denies any current pain, but does state he is having difficulties talking due to a significant amount of saliva build up in his mouth. He has no other complaints at this time. Review of Systems Constitutional: + weakness; no fever and no chills Ear, Nose, Mouth, Throat: + dysphagia and + problem reported (Increased oral secretions); no ear pain Respiratory: + snoring; no cough and no dyspnea Cardiovascular: no chest pain Gastrointestinal: no abdominal pain, no nausea and no vomiting Genitourinary: no dysuria Musculoskeletal: + limited range of motion and + muscle weakness Neurologic: + gait abnormality and + generalized weakness; no headache(s) Physical Exam Constitutional: well developed and cooperative; no acute distress Eyes: normal visual silverman by confrontation, + anicteric sclerae, reactive pupils and + irregular pupils (Pupils small); pupils not fixed and no EOM movement deficit ENMT: Ears: + hearing impairment (reduced on R to finger-rub) Nose: no nasal discharge and nasal mucous membranes not dry Mouth: + drooling and + dentures; oral mucous membranes not dry Neck: trachea midline, no thyromegaly Respiratory: normal respiratory effort, lungs clear to auscultation Cardiovascular: RRR, no murmur, no edema Gastrointestinal (Abdomen): normal bowel sounds, soft, nontender, no hepatosplenomegaly Musculoskeletal: Head/Neck/Chest: normocephalic, head atraumatic and + limited ROM of neck; no chest tenderness Spine: + limited cervical ROM and + limited thoraco-lumbar ROM Extremities: + limited ROM of extremities and + abnormal strength (3-4/5 throughout); no cyanosis Skin: no rashes, warm and dry Neurologic: awake; not confused and not obtunded Speech / Cognition: + abnormal speech (slow) Cranial Nerves: normal accommodation, EOM intact bilaterally and symmetric palate elevation Psychiatric: Orientation: alert, oriented to person and oriented to time; + not oriented to place (Notes he is in [facility]) Eye Contact: good eye contact Affect: + flat affect Results & Data Vital Signs (Past 12 Hours) Vital Signs Temp Pulse Pulse Pulse Resp BP Pulse Ox 01/18/19 11:35 36.7 C 88 20 157/67 H 94 01/18/19 08:00 85 01/18/19 07:11 36.6 C 85 22 140/56 L 97 01/18/19 04:59 37 C 80 18 131/63 95 01/18/19 02:03 75 Laboratory Results Abnormal lab results 01/17/19 01/17/19 01/17/19 Range/Units 18:46 18:47 20:05 WBC (4.8-10.8) K/uL RBC (4.7-6.1) M/uL Hgb (14.0-18.0) g/dL Hct (42-52) % MCHC (32-36) g/dL Immature Gran # (Auto) (0.00-0.02) K/uL Neut # (Auto) (1.4-6.5) K/uL Lymph # (Auto) (1.2-3.4) K/uL APTT (21.0-31.0) Seconds Sodium 119 L* (136-145) mmol/L Chloride 86 L (98-107) mmol/L Carbon Dioxide (21-32) mmol/L Anion Gap 12.0 H (3-11) BUN (7-18) mg/dl BUN/Creatinine Ratio (10-20) Glucose 183 H (70-99) mg/dl POC Glucose (70-99) Osmolality 263 L (280-300) mOsm/kg Calcium (8.5-10.1) mg/dl CK-MB (CK-2) 5.1 H (0.5-3.6) ng/ml Troponin I (0-0.045) ng/ml Globulin 4.5 H (2.5-4.0) gm/dl Albumin/Globulin Ratio 0.8 L (0.9-2) Urine Protein Trace H (Negative) Urine Glucose (UA) 3+ H (Negative) Urine Ketones 3+ H (Negative) Urine Blood Trace H (Negative) U Epithel Cells (Auto) 10-20 H (0-5) /lpf 01/17/19 01/18/19 01/18/19 Range/Units 23:21 00:38 03:02 WBC 11.30 H (4.8-10.8) K/uL RBC 3.98 L (4.7-6.1) M/uL Hgb 12.7 L (14.0-18.0) g/dL Hct 34.3 L (42-52) % MCHC 37.0 H (32-36) g/dL Immature Gran # (Auto) 0.05 H (0.00-0.02) K/uL Neut # (Auto) 10.44 H (1.4-6.5) K/uL Lymph # (Auto) 0.50 L (1.2-3.4) K/uL APTT (21.0-31.0) Seconds Sodium 122 L (136-145) mmol/L Chloride 89 L (98-107) mmol/L Carbon Dioxide 20 L (21-32) mmol/L Anion Gap 13.0 H (3-11) BUN (7-18) mg/dl BUN/Creatinine Ratio (10-20) Glucose 182 H (70-99) mg/dl POC Glucose (70-99) Osmolality (280-300) mOsm/kg Calcium 8.1 L (8.5-10.1) mg/dl CK-MB (CK-2) (0.5-3.6) ng/ml Troponin I 0.060 H* (0-0.045) ng/ml Globulin (2.5-4.0) gm/dl Albumin/Globulin Ratio (0.9-2) Urine Protein (Negative) Urine Glucose (UA) (Negative) Urine Ketones (Negative) Urine Blood (Negative) U Epithel Cells (Auto) (0-5) /lpf 01/18/19 01/18/19 01/18/19 Range/Units 03:06 05:50 07:12 WBC (4.8-10.8) K/uL RBC (4.7-6.1) M/uL Hgb (14.0-18.0) g/dL Hct (42-52) % MCHC (32-36) g/dL Immature Gran # (Auto) (0.00-0.02) K/uL Neut # (Auto) (1.4-6.5) K/uL Lymph # (Auto) (1.2-3.4) K/uL APTT (21.0-31.0) Seconds Sodium 121 L (136-145) mmol/L Chloride 90 L (98-107) mmol/L Carbon Dioxide 16 L (21-32) mmol/L Anion Gap 15.0 H (3-11) BUN 20 H (7-18) mg/dl BUN/Creatinine Ratio 20.4 H (10-20) Glucose 241 H (70-99) mg/dl POC Glucose 279 H 247 H (70-99) Osmolality (280-300) mOsm/kg Calcium 8.2 L (8.5-10.1) mg/dl CK-MB (CK-2) (0.5-3.6) ng/ml Troponin I (0-0.045) ng/ml Globulin (2.5-4.0) gm/dl Albumin/Globulin Ratio (0.9-2) Urine Protein (Negative) Urine Glucose (UA) (Negative) Urine Ketones (Negative) Urine Blood (Negative) U Epithel Cells (Auto) (0-5) /lpf 01/18/19 01/18/19 01/18/19 Range/Units 08:36 11:13 11:29 WBC (4.8-10.8) K/uL RBC (4.7-6.1) M/uL Hgb (14.0-18.0) g/dL Hct (42-52) % MCHC (32-36) g/dL Immature Gran # (Auto) (0.00-0.02) K/uL Neut # (Auto) (1.4-6.5) K/uL Lymph # (Auto) (1.2-3.4) K/uL APTT 126.6 H* (21.0-31.0) Seconds Sodium 121 L (136-145) mmol/L Chloride 90 L (98-107) mmol/L Carbon Dioxide 14 L (21-32) mmol/L Anion Gap 17.0 H (3-11) BUN 19 H (7-18) mg/dl BUN/Creatinine Ratio (10-20) Glucose 225 H (70-99) mg/dl POC Glucose 210 H (70-99) Osmolality (280-300) mOsm/kg Calcium (8.5-10.1) mg/dl CK-MB (CK-2) (0.5-3.6) ng/ml Troponin I (0-0.045) ng/ml Globulin (2.5-4.0) gm/dl Albumin/Globulin Ratio (0.9-2) Urine Protein (Negative) Urine Glucose (UA) (Negative) Urine Ketones (Negative) Urine Blood (Negative) U Epithel Cells (Auto) (0-5) /lpf 01/18/19 01/18/19 01/18/19 Range/Units 12:38 16:11 16:54 WBC (4.8-10.8) K/uL RBC (4.7-6.1) M/uL Hgb (14.0-18.0) g/dL Hct (42-52) % MCHC (32-36) g/dL Immature Gran # (Auto) (0.00-0.02) K/uL Neut # (Auto) (1.4-6.5) K/uL Lymph # (Auto) (1.2-3.4) K/uL APTT (21.0-31.0) Seconds Sodium 123 L 125 L (136-145) mmol/L Chloride 89 L 90 L (98-107) mmol/L Carbon Dioxide 18 L 20 L (21-32) mmol/L Anion Gap 16.0 H 15.0 H (3-11) BUN 20 H 20 H (7-18) mg/dl BUN/Creatinine Ratio 20.4 H (10-20) Glucose 206 H 179 H (70-99) mg/dl POC Glucose 187 H (70-99) Osmolality (280-300) mOsm/kg Calcium 8.4 L (8.5-10.1) mg/dl CK-MB (CK-2) (0.5-3.6) ng/ml Troponin I (0-0.045) ng/ml Globulin (2.5-4.0) gm/dl Albumin/Globulin Ratio (0.9-2) Urine Protein (Negative) Urine Glucose (UA) (Negative) Urine Ketones (Negative) Urine Blood (Negative) U Epithel Cells (Auto) (0-5) /lpf 01/18/19 Range/Units 18:16 WBC (4.8-10.8) K/uL RBC (4.7-6.1) M/uL Hgb (14.0-18.0) g/dL Hct (42-52) % MCHC (32-36) g/dL Immature Gran # (Auto) (0.00-0.02) K/uL Neut # (Auto) (1.4-6.5) K/uL Lymph # (Auto) (1.2-3.4) K/uL APTT > 139.0 H* (21.0-31.0) Seconds Sodium (136-145) mmol/L Chloride (98-107) mmol/L Carbon Dioxide (21-32) mmol/L Anion Gap (3-11) BUN (7-18) mg/dl BUN/Creatinine Ratio (10-20) Glucose (70-99) mg/dl POC Glucose (70-99) Osmolality (280-300) mOsm/kg Calcium (8.5-10.1) mg/dl CK-MB (CK-2) (0.5-3.6) ng/ml Troponin I (0-0.045) ng/ml Globulin (2.5-4.0) gm/dl Albumin/Globulin Ratio (0.9-2) Urine Protein (Negative) Urine Glucose (UA) (Negative) Urine Ketones (Negative) Urine Blood (Negative) U Epithel Cells (Auto) (0-5) /lpf Medications Administered Current Inpatient Medications Aspirin (Ecotrin Ectab) 81 mg PO HS ABDIAS Stop: 02/17/19 20:59 Atorvastatin Calcium (Lipitor) 40 mg PO HS ABDIAS Stop: 02/17/19 20:59 Atropine Sulfate (Atropine Sulfate 1% Oph Soln) 2 drops SL Q2H PRN PRN Reason: SECRETIONS Stop: 02/17/19 10:44 Last Admin: 01/18/19 12:26 Dose: 2 drops Documented by: Clopidogrel Bisulfate (Plavix) 75 mg PO DAILY ABDIAS Stop: 02/17/19 08:59 Last Admin: 01/18/19 11:10 Dose: Not Given Documented by: Dextrose (Dextrose 50%) 25 - 50 ml IV UD PRN; Protocol PRN Reason: Hypoglycemia Protocol Stop: 02/17/19 00:19 Glucagon (Glucagen) 1 mg SQ UD PRN; Protocol PRN Reason: Hypoglycemia Protocol Stop: 02/17/19 00:19 Glucose (Glucose 40%) 15 - 30 gm PO UD PRN; Protocol PRN Reason: Hypoglycemia Protocol Stop: 02/17/19 00:19 Glucose (Dex4 Glucose) 4 - 8 tabs PO UD PRN; Protocol PRN Reason: Hypoglycemia Protocol Stop: 02/17/19 00:19 Heparin Sodium/Dextrose (Heparin Sodium/Dextrose) 25,000 units in 500 mls @ 0 mls/hr IV .Q0M ABDIAS; Protocol Stop: 02/17/19 01:44 Last Titration: 01/18/19 19:22 Dose: 0 units/hr, 0 mls/hr Documented by: Levothyroxine Sodium 12.5 mcg/ (Syringe) 0.625 mls @ 2 mls/min IV DAILY@0900 [facility] Stop: 02/18/19 08:59 Ranitidine HCl 50 mg/ Dextrose 102 mls @ 200 mls/hr IV Q8 ABDIAS Stop: 02/17/19 11:29 Last Infusion: 01/18/19 12:10 Dose: Infused Documented by: Sodium Chloride (Nss 1000ml) 1,000 mls @ 125 mls/hr IV .Q8H [facility] Stop: 02/17/19 16:59 Last Admin: 01/18/19 17:23 Dose: 125 mls/hr Documented by: Insulin Aspart (Novolog Flexpen) 0 units SC Q6 ABDIAS Stop: 02/17/19 05:59 Last Admin: 01/18/19 17:24 Dose: 1 units Documented by: Insulin Glargine (Lantus Solostar Pen) 7 units SQ BID ABDIAS Stop: 02/17/19 08:59 Last Admin: 01/18/19 09:27 Dose: 7 units Documented by: Ioversol (Optiray 320 125ml) 117 ml IV ONCE PRN PRN Reason: Interaction Checking Stop: 01/21/19 21:04 Last Admin: 01/17/19 21:05 Dose: 117 ml Documented by: Levothyroxine Sodium (Synthroid) 25 mcg PO HS [facility] Stop: 02/17/19 20:59 Metoprolol Succinate (Toprol Xl) 50 mg PO DAILY [facility] Stop: 02/17/19 08:59 Last Admin: 01/18/19 11:11 Dose: Not Given Documented by: Metoprolol Tartrate (Lopressor) 2.5 mg IV BID PRN PRN Reason: Hypertension Stop: 02/17/19 10:40 Miscellaneous (Carbohydrates For Hypoglycemia) 15 - 30 gm PO UD PRN PRN Reason: Hypoglycemia Treatment Stop: 02/17/19 00:19 Miscellaneous (Check Scopolamine Patch Placement) 1 ea N/A QS ABDIAS Stop: 01/21/19 15:59 Last Admin: 01/18/19 16:17 Dose: 1 ea Documented by: Miscellaneous (Remove Transderm-Scop Patch) 1 ea N/A Q72H ABDIAS Stop: 01/21/19 11:01 Pantoprazole Sodium (Protonix) 40 mg PO DAILY ABDIAS Stop: 02/17/19 08:59 Last Admin: 01/18/19 11:10 Dose: Not Given Documented by: Ranitidine HCl (Zantac) 150 mg PO HS ABDIAS Stop: 02/17/19 20:59 PG Care Time/CCT Total # of Minutes Spent Total Time Spent with Patient: Total time spent is greater than 50% in coordination of care (as documented) at patient's floor/unit and/or counseling patient: Resident Activity Tracking Resident Involvement: Resident Care Provided Care Provided: Adult Hospital Medicine (1) Diabetes Diabetes mellitus complication status: without complication Diabetes mellitus fdc insulin use: without moth exterminator use Diabetes mellitus type: type 2 Qualified Code(s): E11.9 - Type 2 diabetes mellitus without complications (2) CAD (coronary artery disease) Associated angina: angina presence unspecified Coronary Disease-Associated Artery/Lesion type: samish artery [place] vs. transplanted heart: samish heart Qualified Code(s): I25.10 - Atherosclerotic heart disease of samish coronary artery without angina pectoris (3) Hypothyroid Hypothyroidism type: unspecified Qualified Code(s): E03.9 - Hypothyroidism, unspecified (4) AMS (altered mental status) Altered mental status type: unspecified Qualified Code(s): R41.82 - Altered mental status, unspecified (5) HTN (hypertension) Hypertension type: unspecified Qualified Code(s): I10 - Essential (primary) hypertension
[2019-01-18 13:40] LABS: BUN Creatinine Ratio 20.4 (10-20); Calcium 8.4 mg/dl (8.5-10.1); Creatinine Clr Calc Pharmacy 55.6 ml/min; Est GFR (African American) 81.3; Est GFR (Non-African American) 70.1
[2019-01-18] MEDS: CHECK SCOPOLAMINE PATCH PLACEMENT SCH ×2 (16:17→23:06)
[2019-01-18] MEDS: SODIUM CHLORIDE 0.9% 1000ML 1,000 ML IV SCH (17:23)
[2019-01-18 17:52] LABS: BUN Creatinine Ratio 19.2 (10-20); Calcium 8.7 mg/dl (8.5-10.1); Creatinine Clr Calc Pharmacy 53.9 ml/min; Est GFR (African American) 78.4; Est GFR (Non-African American) 67.7; Potassium 3.9 mmol/L (3.5-5.1)
[2019-01-18 19:15] LABS: Partial Thromboplastin Ratio > 5.1
[2019-01-18 19:18] LABS: Partial Thromboplastin Time > 139.0 Seconds (21.0-31.0)
[2019-01-18 20:27] LABS: Partial Thromboplastin Ratio > 5.1
[2019-01-18 20:29] LABS: Partial Thromboplastin Time > 139.0 Seconds (21.0-31.0)
[2019-01-18] MEDS ORDERED: ASPIRIN 81 MG ECTAB PO SCH (21:00)
[2019-01-18] MEDS ORDERED: LEVOTHYROXINE SODIUM 25 MCG TABLET PO SCH (21:00)
[2019-01-18] MEDS ORDERED: ATORVASTATIN 40 MG TAB PO SCH (21:00)
[2019-01-18 21:37] LABS: Partial Thromboplastin Ratio 4.9
[2019-01-18 21:38] LABS: BUN Creatinine Ratio 18.8 (10-20); Calcium 8.5 mg/dl (8.5-10.1); Creatinine Clr Calc Pharmacy 55.6 ml/min; Est GFR (African American) 81.3; Est GFR (Non-African American) 70.1; Potassium 3.8 mmol/L (3.5-5.1)
[2019-01-18 21:39] LABS: Partial Thromboplastin Time 132.6 Seconds (21.0-31.0)
[2019-01-18 22:35] LABS: Partial Thromboplastin Ratio 3.5
[2019-01-18 22:42] LABS: Partial Thromboplastin Time 93.5 Seconds (21.0-31.0)
[2019-01-19] MEDS: INSULIN ASPART 100 UNITS/ML 3 ML PEN SC SCH ×3 (00:13→12:38)
[2019-01-19 01:02] LABS: Calcium 8.3 mg/dl (8.5-10.1); Creatinine Clr Calc Pharmacy 58.5 ml/min; Est GFR (African American) 86.6; Est GFR (Non-African American) 74.7; Potassium 3.8 mmol/L (3.5-5.1)
[2019-01-19] MEDS: SODIUM CHLORIDE 0.9% 1000ML 1,000 ML IV SCH ×2 (01:31→12:37)
[2019-01-19] MEDS: HEPARIN SODIUM/DEXTROSE 25,000 UNITS/500 ML BAG IV SCH (05:48)
[2019-01-19 06:05] LABS: Partial Thromboplastin Ratio > 5.1
[2019-01-19 06:10] LABS: Albumin Level 2.8 gm/dl (3.4-5.0); Bilirubin Direct 0.2 mg/dl (0-0.2); Bilirubin,Total 0.7 mg/dl (0.2-1); Total Protein 6.5 gm/dl (6.4-8.2)
[2019-01-19 06:22] LABS: Partial Thromboplastin Time > 139.0 Seconds (21.0-31.0)
--- NOTE | 2019-01-19 07:28 | Family Medicine Progress Note ---
Date of Service January 19, 2019 Results & Data Vital Signs (Past 12 Hours) Vital Signs Temp Pulse Pulse Resp BP BP BP 01/19/19 06:45 36.7 C 82 20 147/62 H 01/19/19 03:59 37.2 C 81 18 154/62 H 01/18/19 23:06 37 C 81 20 146/61 H 01/18/19 21:59 123/59 L 01/18/19 20:42 93 H 173/80 H Pulse Ox 01/19/19 06:45 95 01/19/19 03:59 94 01/18/19 23:06 96 01/18/19 21:59 01/18/19 20:42 PG Care Time/CCT Total # of Minutes Spent Total Time Spent with Patient: Total time spent is greater than 50% in coordination of care (as documented) at patient's floor/unit and/or counseling patient:
[2019-01-19 08:06] LABS: Calcium 8.1 mg/dl (8.5-10.1); Creatinine Clr Calc Pharmacy 67.6 ml/min; Est GFR (African American) 94.8; Est GFR (Non-African American) 81.8; Potassium 3.7 mmol/L (3.5-5.1)
[2019-01-19 08:11] LABS: Partial Thromboplastin Ratio 4.1
[2019-01-19] MEDS: CHECK SCOPOLAMINE PATCH PLACEMENT SCH ×2 (08:53→16:04)
[2019-01-19] MEDS: INSULIN GLARGINE SOLOSTAR 100 UNITS/ML 3 ML PEN SQ SCH (08:59)
[2019-01-19] MEDS ORDERED: LEVOTHYROXINE SODIUM 12.5 MCG in SYRINGE 0 ML IV SCH (09:00)
[2019-01-19 09:18] LABS: Partial Thromboplastin Ratio 3.3
[2019-01-19 09:24] LABS: Partial Thromboplastin Time 88.8 Seconds (21.0-31.0)
[2019-01-19] MEDS: ATROPINE SULFATE 1% OP SOLN 2 ML BTL SL PRN (09:59)
[2019-01-19] MEDS ORDERED: Nursing to Pharmacy Communication ONE (12:17)
--- NOTE | 2019-01-19 13:12 | Discharge Summary ---
Date of Service January 19, 2019 Admission HPI Per Admitting Provider Giovani De Los Santos is an unfortunate 83yo C male with history of newly diagnosed ALS (October 2018), HTN, DM and CAD s/p multiple stents presenting with functional decline. Patient's and niece are at the bedside and provide the history as patient is non-verbal and not following commands. Patient follows with the Multidisciplinary ALS clinic at [facility], c/o Dr. Ness. Last note from October which mentions significant decline in finger dexterity and ambulation and weight loss. Per , patient has been steadily declining over the last 3 weeks. She reports that he was able to walk three weeks ago. Since then he has had progressive difficulty with ambulation, now unable to walk or even pull himself up in bed. He has also had progressive decline in speech over the same time frame - this AM he was only moaning answers, not following commands. She noted an increase in oral saliva this week with difficulty managing secretions. He has been having some nausea with meals as well as difficulty swallowing over the last 2 days. His has been feeding him over the last two weeks and reports he has only been eating small bites of food for the last few days. states that he was most altered this afternoon and was looking at her but not responsive. All symptoms have become acutely worse over the last 48 hours. This afternoon the patient was seen by his home health aide and she expressed that he should be placed on hospice care. Patient is unable to answer questions or follow commands. denies presence of fevers/chills/vomiting/diarrhea/constipation. She states he has not been complaining of chest pain, palpitations, SOB or cough. No seizure activity. No falls. No medications were taken today. Per discussion with , patient wishes to be DNR/DNI with no heroic measures. He does not wish to have a feeding tube placed or be ventilated. She is acutely aware that ALS is a progressive disease and is aware of symptoms that may arise. She is rather surprised at the rate of progression, that her is so debilitated after only being diagnosed 2 months ago. ER Course: Pepcid, Solumedrol, NSS x 2 L Admission Exam Per Admitting Provider General: patient obtunded, blinks eyes to verbal stimuli, withdraws from noxious stimuli x 4 Skin: warm, dry, intact, no rashes or lesions HEENT: NC/AT, pupils small, reactive, anicteric sclera, conjunctiva without injection, external ear normal to inspection and nontender, nares patent, moist mucus membranes with excess drooling present, dentures in place, no oropharyngeal lesions, neck supple, trachea midline, no LAD, no thyromegaly, no JVD Heart: +S1/S2, regular with ectopy, no m/r/g Lungs: equal air entry bilaterally, no rales/rhonchi/wheezes anteriorly Abd: +BS, soft, NT/ND, no masses/organomegaly/ascites Ext: warm, 2+ pulses in UE/LE bilaterally, no clubbing/cyanosis or edema Neuro: obtunded, withdraws from painful stimuli, does not follow commands Principal Diagnosis hyponatremia Discharge Exam Constitutional well developed and cooperative; no acute distress Eyes normal visual silverman by confrontation, + anicteric sclerae, reactive pupils and + irregular pupils (Pupils small); pupils not fixed and no EOM movement deficit ENMT Ears: + hearing impairment (reduced on R to finger-rub) Nose: no nasal discharge and nasal mucous membranes not dry Mouth: + drooling and + dentures; oral mucous membranes not dry Neck trachea midline, no thyromegaly Respiratory normal respiratory effort, lungs clear to auscultation Cardiovascular RRR, no murmur, no edema Gastrointestinal (Abdomen) normal bowel sounds, soft, nontender, no hepatosplenomegaly Musculoskeletal Head/Neck/Chest: normocephalic, head atraumatic and + limited ROM of neck; no chest tenderness Spine: + limited cervical ROM and + limited thoraco-lumbar ROM Extremities: + limited ROM of extremities and + abnormal strength (3-4/5 throughout); no cyanosis Skin no rashes, warm and dry Neurologic awake; not confused and not obtunded Speech / Cognition: + abnormal speech (slow) Cranial Nerves: normal accommodation, EOM intact bilaterally and symmetric palate elevation Psychiatric Orientation: alert, oriented to person and oriented to time; + not oriented to place (Notes he is in [facility]) Eye Contact: good eye contact Affect: + flat affect Discharge Data Allergies Allergy/AdvReac Type Severity Reaction Status Date / Time Iodinated Contrast Media Allergy Severe ANAPYLAXIS Verified 01/19/19 07:10 Iodine and Iodide Containing Allergy Severe Anaphylaxis Verified 01/19/19 07:10 Produc shellfish derived Allergy Severe Anaphylaxis Verified 01/19/19 07:10 Consultations 01/17/19 21:50 ED Decision to Admit Stat 01/18/19 00:20 Consult Case Management - Discharge Planning Routine Consult Palliative Care Routine 01/18/19 11:31 Consult Cardiology Routine Ordered Studies 01/17/19 18:18 CT head/brain wo con Stat 01/17/19 19:55 CT abd pelvis IV con only Stat CT angio chest PE protocol Stat Hospital Course (1) Hyponatremia: Patient is a 61 year old male with PMHx ALS, CAD s/p stent Mar 2018, Hypothyroidism, HTN, that presented by EMS with altered mental status and found to be hyponatremic at 119 upon presentation. Hyponatremia -Na 119 upon presentation -?SIADH vs Poor PO Intake vs Hypovolemic Hyponatremia -Pt given 2L NSS in ED, improved Na 122 -Pt continued to appear fairly Euvolemic on exam -Free water restriction at 1500 mL, NPO -NSS 125mL/hr while patient remained NPO -Patient and family wished to be discharged home on Hospice care. Altered Mental Status -Appears greatly improved. - notes that patient is back to baseline ALS -Rapid progression since diagnosis 2 months ago. -Chronic, stable Abnormal EKG with elevated Troponin with known hx CAD s/p stent LAD 2018, and x2 in 2003 -EKG showed T wave inversions and ST depression of V3-V6 -Troponin on admission 0.031, trended at 8 hours to 0.06 to 0.039. -Patient denies any chest pain, chest pressure, or chest discomfort. -Cardiology consulted -Held ASA, clopidogrel, atorvastatin since patient unable to tolerate PO -Heparin gtt protocol -Echocardiogram EF>70% without regional wall abnormalities. At risk for Aspiration -Current PO medications on hold until patient able to tolerate PO, converted to IV -Speech eval ordered - cancelled since patient was going home on hospice -Scopolamine patch and Atropine PRN for secretions DM -Held PO Glimepiride and Metformin -ISS while inpatient Hypothyroidism -Levothyroxine 12.5mg IV while inpatient -Held PO levothyroxine GERD -Held PO Pantoprazole and Zantac -Zantac 50mg IV Q8H while inpatient HTN -Held PO Metoprolol Succinate -Metoprolol 2.5mg IV BID while inpatient DVT with heparin gtt while present. Code - DNR/DNI Dispo - To Home on hospice care (2) AMS (altered mental status): (3) Abnormal EKG: (4) HTN (hypertension): (5) ALS (amyotrophic lateral sclerosis): (6) HTN (hypertension): (7) Hypothyroid: Total Time Total Time Spent Total Time Spent (In Minutes): >30 Discharge Plan Discharge Items Patient Disposition: Hospice - Home Reason For Visit: HYPONATREMIA, ALS Discharge Diagnosis: Metabolic Encephalopathy secondary to Hyponatremia Activity: Resume your previous activity Non-emergency contact: Primary Care Provider and Neurologist Call non-emergency contact if: you have any medication questions Follow-up/Referrals: Kulwinder Jaramillo MD [Primary Care Provider] - Diet: Regular Addtl Attending Provider Instructions: sherry Hodges were seen and evaluated at [facility] from the dates of 01/17 - 01/19/19 for acutely altered mental status that was likely secondary to your hyponatremia (low sodium levels in your blood). This was likely compounded onto the current diagnosis of your ALS that has made it more difficult for you to eat and drink the past few days. During your admission you were treated with medications that assisted in lowering the secretions from your mouth and with IV fluids to increase your sodium level sand hydration status. After lengthy discussion with the hospital team and the palliative care team, you and your family have decided that you would prefer to go home today on hospice. Your medications have been reconciled at today's discharge. Please use the Scopolamine Patch and Atropine as needed for oral secretion management. You can garbage pick up worker at these medications at your noted pharmacy. If you have questions on how to apply or administer either of these medications please call. Pending Studies at Discharge: No Stand-Alone Forms: My [facility] Medications and DC Order Prescriptions: New atropine 1 % Drops 2 drp sublingual Q2H PRN (Reason: secretions) Qty: 10 RF: 2 scopolamine base 1 mg over 3 days patch 3 day 1 patch TD Q3D PRN (Reason: oral secretions) Qty: 10 RF: 2 Continued Hospital Bed Misc .ROUTE .MEDSUPPLY Qty: 1 RF: 0 pantoprazole [Protonix] 40 mg tablet,delayed release (DR/EC) 40 mg PO DAILY RF: 0 polyethylene glycol 3350 [Miralax] 17 gram/dose powder 17 gm PO DAILY PRN (Reason: constipation) RF: 0 atorvastatin 40 mg tablet 40 mg PO HS Qty: 30 RF: 0 cetirizine [Zyrtec] 10 mg tablet 10 mg PO DAILY Qty: 30 RF: 0 coQ10 (ubiquinol) 200 mg capsule 200 mg PO DAILY Qty: 30 RF: 0 levothyroxine 25 mcg tablet 25 mcg PO QPM Qty: 30 RF: 0 metoprolol succinate 50 mg tablet extended release 24 hr 50 mg PO QAM Qty: 30 RF: 0 ranitidine HCl 150 mg tablet 150 mg PO HS Qty: 30 RF: 0 multivitamin Tablet 1 tab PO QAM RF: 0 nitroglycerin [Nitrostat] 0.4 mg Tablet, Sublingual 0.4 mg sublingual DIRECTED PRN (Reason: Chest Pain) RF: 0 atorvastatin 40 mg Tablet 40 mg PO HS RF: 0 aspirin [Aspir-81] 81 mg Tablet,Delayed Release (Dr/Ec) 81 mg PO HS RF: 0 clopidogrel [Plavix] 75 mg Tablet 75 mg PO DAILY RF: 0 pantoprazole 40 mg Tablet,Delayed Release (Dr/Ec) 40 mg PO DAILY RF: 0 ranitidine HCl 150 mg Tablet 150 mg PO HS RF: 0 Discontinued metformin 1,000 mg tablet 1,000 mg PO BIDM Qty: 60 RF: 3 aspirin [Aspir-81] 81 mg tablet,delayed release (DR/EC) 81 mg PO DAILY Qty: 30 RF: 0 clopidogrel [Plavix] 75 mg tablet 75 mg PO QPM Qty: 30 RF: 0 glimepiride 2 mg tablet 2 mg PO QAM Qty: 30 RF: 0 multivitamin Tablet 1 tab PO DAILY RF: 0 metoprolol succinate 50 mg Tablet Extended Release 24 Hr 50 mg PO DAILY RF: 0 glimepiride 2 mg Tablet 2 mg PO QAM RF: 0 levothyroxine 25 mcg Tablet 25 mcg PO HS RF: 0 metformin 1,000 mg Tablet 1,000 mg PO BID RF: 0 nitroglycerin 0.4 mg Tablet, Sublingual 0.4 mg sublingual UD PRN (Reason: Chest Pain) RF: 0 polyethylene glycol 3350 [Miralax] 17 gram/dose Powder 17 g PO DAILY RF: 0 Discharge Orders: Discharge Order (Routine); Ordered 01/19/19 Ordered By: Brandon Espino Admission Data Admit Date/Time: 01/17/19 23:28 Attending Provider: Mc Larsen Admit Provider: Eugenia Martin Primary Care Provider: Kulwinder Jaramillo Other Providers: Eugenia Martin ; Jillian Stone ; James Caballero ; Sheila Macedo Other Interventions: Discharge Summary Assessment (RN) Last Done: 01/19/19 14:39 DC Date/Time DO NOT enter until pt leaves facility: 01/19/19 16:27 Supervising Physician Co-Signing Physician Notes I personally examined the patient and verified all okeefe points of history and exam, discussed case, and agree with decision making with Dr Espino extensive d/w family - they would prefer to take him home w hospice today if possible answered all questions to the best of my ability. case management input greatly appreciated vitals noted nad breathing unlabored skin no pallor or icterus hyponatremia - labs suggested SiADH but response was more in line with hypovolemic hyponatremia - either way has improved. home w hospice related to ALS metabolic encephalopathy present on admission related to hyponatremia - improved and now seems to be at current declining baseline per . severe/rapidly progressive ALS - home with hospice otherwise as above Resident Activity Tracking Resident Involvement: Resident Care Provided Care Provided: Adult Hospital Medicine
[2019-01-19 15:31] VITALS: BP 134/73; PULSE 94; TEMP 98.6; O2SAT 90
--- NOTE | 2019-01-19 15:48 | Palliative Care Consultation ---
Date of Consultation January 19, 2019 Assessment & Plan (1) Goals of care, counseling/discussion: -83 year old male patient with PMH ALS, CAD s/p stent Mar 2018, Hypothyroidism, HTN, that presented by EMS with altered mental status and found to be hyponatremic at 119 upon presentation. Patient also found to have elevated troponin with EKG changes. He was placed on heparin gtt. Echo showed EF >70% without significant wall motion abnormalities. Patient was just dx with ALS in October of 2018 and he has rapidly deteriorated since then. He is no longer able to move his extremities. He has severe dysarthria and no gag reflex. He is unable to swallow pills or eat/drink. He presented also with this severe weakness and 's inability to continue caring for him alone. Palliative care is consulted to discuss goals of care in this gentleman who has end-stage ALS. -Met with patient, his Annmarie, and Annmarie's sister Myesha. Patient has severe dysarthria and garbled speech. Was able to make some words out. patient is oriented x4, states he "just fine and dandy" when asked how he is feeling. -Patient states that he wants to go home. Annmarie states that patient's wishes are to NOT have feeding tube placed and allow nature to take its course, understanding that he could be end of life. Patient agreed with this as well. -Annmarie was emotional throughout conversation. She does seem overwhelmed with how fast patient has declined. She is tearful and even angry at times. Annmarie's main goal is to get patient home as soon as possible. She needs a suction machine. -We discussed comfort medications and how they could be given sublingually and without needing to swallow. -Would increase atropine to Atropine 1% oph soln 4 drops SL Q1h PRN secretions. Has scopolamine patch. -Patient unable to swallow-- no further PO medications/pills. -IVF infusing now, no IVF will be continued once discharged home with hospice. -Attending physician updated. Case management working on discharge plans. -Please contact us with any further palliative care needs. (2) ALS (amyotrophic lateral sclerosis): (3) Dysphagia, oropharyngeal phase: (4) Muscle weakness: Supervising Physician Co-Signing Physician Notes Chart reviewed, patient seen and examined. No family at bedside of the time of my visit this afternoon. Patient awake and alert, states he is comfortable. Patient with very weak voice and dysarthria-able to respond to easily yes or no to simple questions. Patient denies pain or discomfort HEENT: EOMI, hearing within normal limits Respirations: Unlabored, few upper airway secretions CV: Regular rate Abdomen: Not distended Extremities: Unable to move his extremities. Neuro: Alert and oriented Agree with above note, assessment and plan as per SOFIYA Dominguez. Plan is for patient to return home under hospice care. History of Present Illness Attending Physician: Mc Larsen DO History of Present Illness This 83 year old male patient with PMH ALS, CAD s/p stent Mar 2018, Hypothyroidism, HTN, that presented by EMS with altered mental status and found to be hyponatremic at 119 upon presentation. Patient also found to have elevated troponin with EKG changes. He was placed on heparin gtt. Echo showed EF >70% without significant wall motion abnormalities. Patient was just dx with ALS in October of 2018 and he has rapidly deteriorated since then. He is no longer able to move his extremities. He has severe dysarthria and no gag reflex. He is unable to swallow pills or eat/drink. He presented also with this severe weakness and 's inability to continue caring for him alone. Palliative care is consulted to discuss goals of care in this gentleman who has end-stage ALS. Thank you kindly for this consult. Palliative care team will follow as needed. Allergies Allergy/AdvReac Type Severity Reaction Status Date / Time Iodinated Contrast Media Allergy Severe ANAPYLAXIS Verified 01/19/19 07:10 Iodine and Iodide Containing Allergy Severe Anaphylaxis Verified 01/19/19 07:10 Produc shellfish derived Allergy Severe Anaphylaxis Verified 01/19/19 07:10 Home Medications Home Medications Medication Instructions Recorded Confirmed Type multivitamin 1 tab PO QAM 07/29/18 12/29/18 History nitroglycerin [Nitrostat] 0.4 mg SUBLINGUAL DIRECTED PRN 07/29/18 12/29/18 History atorvastatin 40 mg tablet 40 mg PO HS #30 tab 10/20/18 12/29/18 Rx cetirizine 10 mg tablet 10 mg PO DAILY #30 tab 10/20/18 12/29/18 Rx coenzyme Q10 (ubiquinol) 200 mg 200 mg PO DAILY #30 cap 10/20/18 12/29/18 Rx capsule levothyroxine 25 mcg tablet 25 mcg PO QPM #30 tab 10/20/18 12/29/18 Rx metoprolol succinate ER 50 mg 50 mg PO QAM #30 tab 10/20/18 12/29/18 Rx tablet,extended release 24 hr ranitidine 150 mg tablet 150 mg PO HS #30 tab 10/20/18 12/29/18 Rx pantoprazole 40 mg tablet,delayed 40 mg PO DAILY 12/26/18 12/29/18 History release polyethylene glycol 3350 17 17 gm PO DAILY PRN 12/29/18 12/29/18 History gram/dose oral powder Hospital Bed Homecare #1 ea 01/12/19 Rx aspirin [Aspir-81] 81 mg PO HS 01/17/19 01/17/19 History atorvastatin 40 mg PO HS 01/17/19 01/17/19 History clopidogrel [Plavix] 75 mg PO DAILY 01/17/19 01/17/19 History pantoprazole 40 mg PO DAILY 01/17/19 01/17/19 History ranitidine HCl 150 mg PO HS 01/17/19 01/17/19 History atropine 2 drp SUBLINGUAL Q2H PRN #10 ml 01/19/19 Rx scopolamine base 1 patch TD Q3D PRN #10 ea 01/19/19 Rx Patient History Medical History Xerosis of skin Tremor Subungual hematoma Stage III chronic kidney disease Skin lesion of scalp Shortness of breath Short-term memory loss Rash of body Rash Presence of stent in artery Poor balance Peripheral neuropathy Orthostatic lightheadedness Neoplasm of uncertain behavior of skin Muscle weakness-general Muscle weakness Lentigines Inhibited sexual excitement Hypothyroidism, adult Hyperlipidemia History of basal cell carcinoma Equilibrium disorder Dysphagia, oropharyngeal phase Diabetic peripheral neuropathy Cognitive disorder Chronic obstructive pulmonary disease Chronic fatigue syndrome Chest pain Benign essential tremor Arteriosclerotic coronary artery disease Angina, class I Anemia of chronic disease Allergic reaction Actinic keratosis Coronary artery disease stents x2 (2003), EN x1 to LAD (03/28/2018) ALS (amyotrophic lateral sclerosis) diagnosed October 2018 at [place] CAD (coronary artery disease) Diabetes History of cataract Hypertension Hypothyroid Basal cell carcinoma CKD (chronic kidney disease) Left wrist AV fistula (never used) 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) Carotid artery stenosis B/L ICA <50% stenosis per 09/2018 duplex Diabetes mellitus, type 2 Dyslipidemia GERD (gastroesophageal reflux disease) Hypertension Hypothyroid 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) NEVILLE (obstructive sleep apnea) recent diagnosis; no device Orthostatic hypertension Osteoarthritis Transient ischemic attack (TIA) 07/2018 Surgical History History of heart artery stent History of vasectomy History of PTCA History of cataract surgery B/L History of colonoscopy History of esophagogastroduodenoscopy (EGD) History of tooth extraction Hx of vasectomy Family History Sister Family history of diabetes mellitus Myocardial infarction Brother Family history of diabetes mellitus Family history of esophageal cancer Myocardial infarction Mother Family history of diabetes mellitus Myocardial infarction Father Family history of diabetes mellitus Parkinsons disease, secondary Myocardial infarction Unknown Coronary heart disease Diabetes Hypertension Esophageal cancer Social History Preferred Language: Mohawk Communication Ability: Impaired Architectural Draftsperson Required: No Beliefs That Will Affect Care: None marital status: Current Living Situation: Spouse current occupational status: retired Feels Safe at Home: Yes Smoking Status: Former smoker Tobacco Type: cigarettes ; Second Hand Exposure: No ; Hx Alcohol Use: No Hx Substance Use: No Review of Systems Review of Systems: Unobtainable due to cognitive status (severe ALS causing severe dysarthria) Physical Exam Constitutional: + ill appearing (deconditioned); no acute distress ENMT: Mouth: + dry oral mucous membranes Respiratory: normal respiratory effort; no labored breathing Auscultation: + diminished lung sounds loud moist secretions in throat Cardiovascular: Rate/Rhythm: regular rate and regular rhythm Extremities: + edema (generalized) Gastrointestinal (Abdomen): Inspection/Auscultation: normal bowel sounds Percussion/Palpation: abdomen soft; abdomen nontender Neurologic: awake; + does not move all extremities Speech / Cognition: + abnormal speech (severe dysarthria) Psychiatric: Orientation: alert and oriented x 3 Results & Data Vital Signs (Past 12 Hours) Vital Signs Temp Pulse Pulse Pulse Resp BP BP 01/19/19 14:58 37.0 C 94 H 20 134/73 01/19/19 14:39 37.4 C 85 61 22 123/59 L 01/19/19 10:51 37.4 C 61 22 166/77 H 01/19/19 08:00 94 H 01/19/19 06:45 36.7 C 82 20 147/62 H 01/19/19 03:59 37.2 C 81 18 154/62 H Pulse Ox 01/19/19 14:58 90 01/19/19 14:39 91 01/19/19 10:51 91 01/19/19 08:00 01/19/19 06:45 95 01/19/19 03:59 94 Time Spent Midlevel 70 minutes with >50% of the time spent at bedside with patient and family discussing condition and GOC.
[2019-01-19 16:18] LABS: Partial Thromboplastin Ratio 1.7
[2019-01-19 16:21] LABS: Partial Thromboplastin Time 46.4 Seconds (21.0-31.0)
--- NOTE | 2019-01-19 16:54 | Cardiology Consultation ---
Date of Consultation January 19, 2019 Assessment & Plan (1) Elevated troponin: Very minor elevation of troponin of no clinical significance. No further cardiac workup necessary at this time. (2) Abnormal EKG: Anterolateral ST and T-wave abnormality noted. (3) Arteriosclerotic coronary artery disease: As above, the patient had a mid LAD stent and angioplasty of a diagonal branch back in April 2003. A drug-eluting stent was placed in the distal LAD in March of this year. Quiescent current medical management. (4) ALS (amyotrophic lateral sclerosis): Conservative medical care. History of Present Illness Attending Physician: Mc Larsen DO History of Present Illness Mr. De Los Santos was admitted on January 17 with mental status changes. A troponin level was in mildly, and therefore, this consultation was ordered. Of note, I follow the patient in the outpatient setting. Unfortunately, the patient was diagnosed with ALS back in September. Over the last 3 weeks there has been a significant decline in his functional status. He was able to walk 3 weeks ago, however, is now bed-bound. According to the , he has had no recent complaints of chest discomfort or dyspnea. She further denies syncope, presyncope, PND, orthopnea, palpitations, lower extremity edema, and claudication. The patient does carry history of coronary artery disease. In April 2003, the patient had a stent placed in the mid LAD and had an angioplasty of the 1st diagonal branch. He did well until March of this year when he had a drug- eluting stent placed in the distal LAD. Currently, patient is resting comfortably in bed without complaints. Past medical and surgical history 1. Coronary artery disease-see above 2. Mild to moderate mitral regurgitation. 3. Hypertension 4. Hypercholesterolemia 5. COPD 6. ALS 7. Chronic renal failure 8. Diabetes mellitus 9. Hypothyroidism 10. Interocular lens implant 11. TIA-July 2017 12. Cerebral vascular disease-60% bilateral carotid stenoses, July 2018 13. GERD 14. Left wrist AV fistula repair-September 2018 15. BPH 16. Anemia of chronic disease 17. General peripheral neuropathy 18. Vasectomy 19. Obstructive sleep apnea Social history and lives with his No tobacco or alcohol Family history Noncontributory Review of systems A 10 point review of systems was negative except for that described above. 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 HEENT exam is negative. Neck is supple with full carotid upstrokes. There are no carotid bruits. Jugular venous pressure is flat at 90. There is no thyromegaly. Cardiovascular exam reveals a regular rhythm with a normal S1 and S2. No S3, S4, or murmurs are noted. Lungs are clear without rales, rhonchi, or wheezes. Abdomen is soft and nontender without bruits. Extremities reveal intact radial artery and posterior tibial pulses bilaterally. There is no peripheral edema. Results & Data Vital Signs (Past 12 Hours) Vital Signs Temp Pulse Pulse Pulse Resp BP BP 01/19/19 14:58 37.0 C 94 H 20 134/73 01/19/19 14:39 37.4 C 85 61 22 123/59 L 01/19/19 10:51 37.4 C 61 22 166/77 H 01/19/19 08:00 94 H 01/19/19 06:45 36.7 C 82 20 147/62 H Pulse Ox 01/19/19 14:58 90 01/19/19 14:39 91 01/19/19 10:51 91 01/19/19 08:00 01/19/19 06:45 95 Laboratory Results CBC notes a hemoglobin of 12.7, hematocrit 34.3, white count 11.3, platelet count of 2 or 76,000. Electrolytes noted a sodium of 125, potassium 3.7, chl oride 95, bicarb 19, BUN 16, creatinine 0.82, and glucose of 207. Initial troponin was 0.031 with a follow-up value of 0.06 and 0.039. CK is 173. Diagnostic Findings athletic monitor is benign. EKG notes sinus rhythm with an anterolateral ST and T-wave abnormality. Echocardiogram notes hyperdynamic left ventricular systolic function. PG Care Time/CCT Total # of Minutes Spent Total Time Spent with Patient: Total time spent is greater than 50% in coordination of care (as documented) at patient's floor/unit and/or counseling patient:
== END 2019-01-19 16:27 | disposition hospice, home (50) | DRG 640 ==
LOC: ED 18:05 → 2S 23:28 → SUATTDRO 23:28 → MERGE 23:28 → 2S 01-18 00:06